=== PATIENT | female | born 1990 | race Caucasian/White ===

== ENCOUNTER 2017-05-11 14:52 | Day surgery (SDC) | payer MEDICAID, SELFPAY ==
[2017-05-08 09:18] VITALS: BP 96/58; BMI 16.8
[2017-05-11] VITALS (8 sets, daily range): BP systolic 91–101; BP diastolic 54–68; PULSE 80–104; RESP 16–18; TEMP 36.3–36.9; O2SAT 97–100; BMI 16.3
[2017-05-11] MEDS: Doxycycline 100 MG CAPSULE PO (09:45)
[2017-05-11 15:31] LABS: Hematocrit 37.1 % (37-47); Hemoglobin 12.6 g/dl (12.0-15.0); Mean Corpuscular Hgb 29.3 pg (27.0-32.0); Mean Corpuscular Volume 86.3 fL (81-99); Mean Platelet Vol. 10.1 fl (6.2-12.0); Platelet Count 191 K/mm3 (150-450); RBC Distribution Width CV 12.4 % (11.6-14.6); White Blood Count 8.4 K/mm3 (4.4-11.0)
[2017-05-11 15:33] LABS: Scan Indicated on CBC? Y/N NO
--- NOTE | 2017-05-11 16:30 | POC_PTH ---
PATIENT: LASHON ROSAS [place] [facility] [id number] AGE/SX: 26/F ROOM: RE05/11/[address]: Dr. Rosalba Maneul MD : 1990 BED: DIS: 05/11/2017 SPEC #: [id number] RECD: 05/12/17 12:11 STATUS: JI JORJE #: [id number] JAVIER: 05/11/17 16:[address]: Rosalba Manuel DEPT: SURGICAL PATHOLOGY RECD BY: Esteban Lindsey ENTERED: 05/12/17 13:48 SP TYPE: PROD CONC OTHR DR: Dr. Andi Malave MD Tissues: Product of conception, NOS Procedures: Surgery Specimen Level IV HEADER OPERATION: Dilation and curettage, suction PRE-OP DIAGNOSIS: Missed TISSUE SUBMITTED: Products of conception MICROSCOPIC DIAGNOSIS Endometrium, curettage: Chorionic villi, decidualized stroma and trophoblastic cells consistent with products of conception. AM:soni 05/13/17 MICROSCOPIC DESCRIPTION Slides are reviewed. GROSS DESCRIPTION Received in fixative is one container labeled with the patient's name and designated products of conception. The specimen consists of multiple irregular fragments of pink-guillermo soft tissue that in aggregate measure 6 x 5 x 0.2 cm. parts are not grossly recognized. Salesperson Sheet Music portions are submitted in one cassette. / AM:soni 05/12/17 TC:5 CPT: 22455
--- NOTE | 2017-05-11 16:47 | HP.PCM_ITS ---
- Problem List (1) Missed Status: Acute Comment: s/p cytotec two doses, if incomplete recommend d and c , given some percocet for pain History and Physical Date of Admission: 05/11/17 Intake Vital Signs 3 05/08/17 Height 5 ft 2 in 05/08/17 Weight: 92 lb 05/08/17 Body Mass Index (BMI) 16.8 05/08/17 Blood Pressure 96/58 Intake Visit Reasons: Follow up Cnc Specialist Required: No Allergies latex Allergy (Verified 05/08/17 14:06) Hives morphine Allergy (Verified 05/08/17 14:06) Hives Penicillins Allergy (Verified 05/08/17 14:06) Hives Medications BusPIRone [Buspar] 5 mg PO DAILY 12/23/15 [History Confirmed 05/11/17] oxycodone-acetaminophen 5 mg-325 mg tablet 1 tab PO ONCE PRN #14 tab 05/05/17 [ Rx Confirmed 05/08/17] ProMETHAzine [Phenergan] 12.5 mg PO PRN PRN 05/08/17 [History Confirmed 05/08/17 ] Is last menstrual period known: No Post menopausal: No Patient : No : No PFSH Medical History Anxiety and depression (Acute) Family History Grandmother Cancer lung Breast cancer Heart disease Grandfather Heart disease Social History Smoking Status: Current every day smoker alcohol intake: never substance use type: does not use caffeine: Yes what type of physical activity do you participate in: walking seatbelt use: always do you feel safe at home: Yes additional social history: Anuj- Unemployed patient is unemployed HPI Follow up: Details: LASHON HOLLINGSWORTH is a 26 year old who presents for fu her miscarriage. she has taken two doses of cytotec and still has retained products. s he wants to proceed with a d and c. Pregancy History 2 2 Elective abortions Hx Para 1 Spontaneous abortions Hx # Term Pregnancies Ectopic pregnancies Hx # Pregnancies Multiple births # of living children Past Pregnancies Del. Date Name GA/Weeks Outcome Route Bth Weight Infant Gen Labor Lgth Anesthesia Del Locatn Provider FOB Unknown 2013 Anuj 36 live - full term Male [facility] ROS Const Constitutional: Denies poor appetite, headache(s), fever(s), increased appetite , weight gain, weight loss or fatigue Cardio Card: Denies chest pain Resp Resp: Denies dyspnea or cough GI GI: Reports as per HPI; denies vomiting, nausea, abdominal pain or constipation : Reports as per HPI; denies urinary urgency, vaginal discharge, urinary frequency, vaginal itching, vaginal odor, vaginal dryness, urinary incontinence, urinary hesitancy, difficulty urinating, painful urination or nipple discharge Skin Skin/Breast: Denies breast lump, breast pain, breast skin changes, nipple discharge or change in hair Exam Const General: cooperative, healthy appearing, comfortable, no acute distress, well developed Nutritional Appearance: average body habitus Orientation: alert HENME Head: normal to inspection, normocephalic Neck Neck: normal visual inspection, trachea midline Thyroid: thyroid normal Resp Effort & Inspection: normal respiratory effort GI Inspection: normal to inspection, non-distended Palpation: soft, no hepatosplenomegaly General: bladder normal to palpation External Female Exam: normal external appearance, normal appearance of the urethra Urethra: normal appearance of the urethra, normal palpation, no discharge Speculum Exam - Vagina: normal appearance of the vagina, normal vaginal discharge Speculum Exam - Cervix: normal appearance of the cervix, nontender Bimanual Exam- Vagina & Uterus: bladder normal to palpation, No cervical tenderness, normal bimanual exam, uterine size normal, uterine shape normal, uterine mobility normal, uterine consistency normal, normal cervical palpation, uterus non-tender Bimanual Exam- Adnexa, other: normal adnexae, adnexae mobile, no adnexal masses , pelvic support normal Pelvic Support: normal Skin General: no rashes or lesions noted Assessment & Plan Problems 1. Missed O02.1 s/p cytotec two doses, if incomplete recommend d and c, given some percocet for pain Plan plan d and c suction Coding Level of Care Code Off vis,est,level 4 Diagnoses Missed O02.1
--- NOTE | 2017-05-11 16:48 | OP.PCM_ITS ---
Problem List (1) Missed Status: Acute Comment: s/p cytotec two doses, if incomplete recommend d and c , given some percocet for pain Report of Operation Date of Procedure: 05/11/17 Pre-Operative Diagnosis: missed ab 6 weeks Post-Operative Diagnosis: same Surgery/Procedure Performed:: Suction D&C 6 weeks Description of Surgical Findings:: Six-week missed AB Type of Anesthesia:: Local MAC Specimen's removed: poc Estimated Blood Loss (mL): 25 cc Fluids Replaced: Crystalloid Description of Procedure: Patient was evaluated preoperatively and found to have a missed at 7-8 weeks of measuring only 5-6 weeks with no pole or yolk sac seen. Patient was counseled and offered medical management versus surgical and patient chose suction D&C after failing medical management with Cytotec after 1 week. Patient received IV anesthesia was prepped and draped in normal sterile fashion in the dorsal lithotomy position. Cervix was grasped with ring forceps and previously dilated to allow passage of a 7 mm suction curette. Uterus sounded 9 cm. Multiple passes were made with the suction curette to remove products of conception and then sharp curettage was formed to confirm all removal of products of conception. All instruments were removed from the vagina and patient was awoken and taken recovery in stable condition. Grafts/Implants Used: None - Complications None - Admit VTE Documentation VTE Present on Admission: No VTE Mechan Device Prophylaxis: SCD's
--- NOTE | 2017-05-11 16:48 | PCM.DC.D&C ---
Discharge Diet: No Restrictions Discharge Activity: Return to Normal Activity May resume sexual activity in: No Restrictions Call your doctor if you observe: Fever of 101 or Higher Allergies/Adverse Reactions: Allergies latex Allergy (Verified 05/08/17 14:06) Hives morphine Allergy (Verified 05/08/17 14:06) Hives Penicillins Allergy (Verified 05/08/17 14:06) Hives Medications to take at Discharge BusPIRone [Buspar] 5 mg PO DAILY 12/23/15 oxycodone-acetaminophen 5 mg-325 mg tablet 1 tab PO ONCE PRN #14 tab 05/05/17 ProMETHAzine [Phenergan] 12.5 mg PO PRN PRN 05/08/17 Primary Care Physician: Andi Malave MD [Primary Care Provider] - Please Follow Up With: Rosalba Manuel MD - [phone]
[2017-05-11] MEDS: MedroxyPROGESTERone 150 MG/ML Syringe IM (17:23)
== END 2017-05-11 18:14 | disposition home or self-care (01) ==
LOC: SDC 14:54 → AC 14:56
PROVIDERS: Anesthesiology; Family Provider Family Medicine; PCP Family Medicine; Visit Provider Obstetrics & Gynecology
PROC: (CPT 59812; principal; 2017-05-11 16:15)
DX: O02.89 Other abnormal products of conception (principal); F32.9 Major depressive disorder, single episode, unspecified; F41.9 Anxiety disorder, unspecified; F17.200 Nicotine dependence, unspecified, uncomplicated; Z79.899 Other long term (current) drug therapy
CPT/HCPCS: 59812; 85027; 86850; 86870; 86900; 88305; J7120; J2405

== ENCOUNTER → 2017-08-05 16:40 | Outpatient (CLI) | payer MEDICAID, SELFPAY ==
[2017-08-05 20:02] LABS: Chlamydia Trachomatis by PCR Negative (Negative); Neisserai gonorrhoeae by PCR Negative (Negative); Probe Check PASS; Sample Adequacy Control PASS; Specimen Processing Control PASS
== END ==
PROVIDERS: Visit Provider Nurse Practitioner Women's Health
DX: Z11.3 Encounter for screening for infections with a predominantly sexual mode of transmission (principal)
CPT/HCPCS: 87070; 87205; 87491; 87591

== ENCOUNTER 2018-06-07 18:52 | Emergency (ER) | payer BC, SELFPAY ==
[2018-06-02 10:52] VITALS: BMI 18.1
[2018-06-07 18:54] VITALS: BP 98/67; PULSE 110; RESP 16; TEMP 36.6; O2SAT 97; BMI 16.0
--- NOTE | 2018-06-07 19:05 | ED.VISSUMM ---
- ER Visit Summary Date of Service: 06/07/18 Chief Complaint: Influenza History of Present Illness: The patient is a 27 F presenting with influenza-like illness for 1 day. Her daughter and son were both just diagnosed with influenza A. She is certain that she has it. She denies vomiting, abdominal pain, neck pain, rash, or confusion. Physical Examination: Those are within normal limits. Not in distress. No meningeal signs. No rash. Normal neurologic exam. Is clear. Pulse ox normal. Test Results: Emergency Department Course and Treatment: She does not want to be tested. Given her exposure and symptoms, I do think it is reasonable to treat her with Tamiflu. She was given her first dose here. Treatment Plan: Disposition: Home stable Impression: Initial encounter influenza-like illness with exposure to influenza a This note was generated with [employer] dictation software. It may contain incorrect words, spelling, and punctuation that were not noted in review of the chart prior to signing ED Disposition - Plan for ED Patient: Instructions: ED Flu Prescriptions: proMETHazine tablet [Phenergan] 25 mg PO Q6H PRN PRN #10 tablet PRN Reason: Nausea Oseltamivir Phosphate [Tamiflu] 75 mg PO BID #10 capsule Referrals: Andi Malave MD [Primary Care Provider] -
--- NOTE | 2018-06-07 19:08 | ED.DCSUM_ITS ---
- ER Visit Summary Date of Service: 06/07/18 Chief Complaint: Influenza History of Present Illness: The patient is a 27 F presenting with influenza-like illness for 1 day. Her daughter and son were both just diagnosed with influenza A. She is certain that she has it. She denies vomiting, abdominal pain, neck pain, rash, or confusion. Physical Examination: Those are within normal limits. Not in distress. No meningeal signs. No rash. Normal neurologic exam. Is clear. Pulse ox normal. Test Results: Emergency Department Course and Treatment: She does not want to be tested. Given her exposure and symptoms, I do think it is reasonable to treat her with Tamiflu. She was given her first dose here. Treatment Plan: Disposition: Home stable Impression: Initial encounter influenza-like illness with exposure to influenza a This note was generated with [employer] dictation software. It may contain incorrect words, spelling, and punctuation that were not noted in review of the chart prior to signing ED Disposition - Plan for ED Patient: Instructions: ED Flu Prescriptions: proMETHazine tablet [Phenergan] 25 mg PO Q6H PRN PRN #10 tablet PRN Reason: Nausea Oseltamivir Phosphate [Tamiflu] 75 mg PO BID #10 capsule Referrals: Andi Malave MD [Primary Care Provider] -
[2018-06-07 19:24] VITALS: BP 116/70; PULSE 92; RESP 18; O2SAT 97
== END 2018-06-07 19:24 | disposition home or self-care (01) ==
LOC: ED 19:18
PROVIDERS: Emergency Provider Emergency Medicine; Family Provider Family Medicine; PCP Family Medicine
DX: Z20.828 Contact with and (suspected) exposure to other viral communicable diseases (principal); M79.10 Myalgia, unspecified site; R11.0 Nausea; R50.9 Fever, unspecified; Z72.0 Tobacco use
CPT/HCPCS: 99283

== ENCOUNTER 2018-07-20 14:04 | Emergency (ER) | payer BC, MEDICAID, SELFPAY ==
[2018-07-20 14:05] VITALS: BP 145/84; PULSE 115; RESP 16; TEMP 36.6; O2SAT 97; BMI 17.2
--- NOTE | 2018-07-20 14:07 | NURSING ---
NO OLD EKGS
[2018-07-20 15:52] VITALS: PULSE 100; RESP 14; O2SAT 97
--- NOTE | 2018-07-20 15:55 | EKG12_ITS ---
Test Reason : Blood Pressure : / mmHG Vent. Rate : 125 BPM Atrial Rate : 125 BPM P-R Int : 134 ms QRS Dur : 090 ms QT Int : 308 ms P-R-T Axes : 076 095 011 degrees QTc Int : 444 ms Sinus tachycardia Right atrial enlargement Borderline ECG Confirmed by JOSE YANG, AVA ([id number]), science editor DARCIE BAÑUELOS ([id number]) on 07/22/2018 9:16:24 AM Referred By: TIFFANY Confirmed By:AVA GARCIA MD
--- NOTE | 2018-07-20 16:00 | ED.DCSUM_ITS ---
- ER Visit Summary Date of Service: 07/20/18 Chief Complaint: Palpitations History of Present Illness: The patient is a 27 F who complains of a 2-week history of heart racing and beating fast. She was seen at her PCPs office. An EKG showed tachycardia. She is scheduled for an echocardiogram and Holter mo shantal. She states she occasionally feels lightheaded but has not had any syncope or near syncope. She did start Prozac approximate 1 month ago for anxiety. She is a smoker. She denies drug use. No recent change in diet or caffeine intake. Physical Examination: Blood pressure is 145/84, temperature 97.9, heart rate 115, respiratory rate 16, pulse ox 97% on room air. The time of my examination her heart rate is 106. Patient is sitting upright in bed no acute distress. She is alert and talkative. Head neck examination is unremarkable. Heart is slightly tachycardic and regular. Lungs sounds are clear. Abdomen is soft and nontender. Test Results: EKG is sinus tach at 125 with no sign of acute ischemia. CBC is normal. Chemistry studies significant only for potassium slightly low at 3.4. Troponin is negative. TSH is normal. test is negative. Emergency Department Course and Treatment: Patient was given IV fluids here. On repeat evaluation blood pressure is 106/74 with a heart rate of 85. Test results were discussed with the patient. She will be given a dose of potassium here and 2 additional days at home. She is to follow-up next week for her Holter monitor as scheduled. If she has continues to have symptoms she is to follow-up with the nurse practitioner at her primary care office. She is comfort with this plan. Treatment Plan: [] Disposition: Discharge Impression: 1. Palpitations 2. Mild hypokalemia This note was generated with [employer] dictation software. It may contain incorrect words, spelling, and punctuation that were not noted in review of the chart prior to signing ED Disposition - Plan for ED Patient: Disposition: Home or Assisted Living Instructions: ED Palpitations Prescriptions: Potassium Chloride [K-Dur] 40 meq PO DAILY #2 days Referrals: Andi Malave MD [NON-STAFF] - Keep Igor appointment
[2018-07-20 16:10] VITALS: BP 108/74; PULSE 85; RESP 16; O2SAT 97
[2018-07-20 16:22] LABS: Absolute Lymphocyte Count 1.45 X10^3/ul (0.83-4.51); Absolute Neutrophil Count 5.2 X10^3/uL (2.0-7.7); Basophil# 0.02 X10^3/uL; Basophil% 0.3 % (0-1); Eosinophil# 0.05 X10^3/uL; Eosinophils% 0.7 % (0-5); Hematocrit 40.6 % (37-47); Hemoglobin 13.9 g/dl (12.0-15.0); Lymphocyte # 1.45 X10^3/ul (4.0); Mean Corp Hgb Conc 34.2 g/gl (32-36); Mean Corpuscular Hgb 28.5 pg (27.0-32.0); Mean Corpuscular Volume 83.2 fL (81-99); Monocyte# 0.53 X10^3/uL; Monocyte% 7.3 % (0-10); Neutrophil % 71.6 % (47-70); Platelet Count 200 K/mm3 (150-450); RBC Distribution Width CV 12.2 % (11.6-14.6); RBC Distribution Width SD 36.7 fl (35.1-43.9); Red Blood Count 4.88 M/mm3 (4.2-5.4); White Blood Count 7.3 K/mm3 (4.4-11.0)
[2018-07-20 16:35] LABS: POSITIVE COUNT NO; POSITIVE DIFFERENTIAL NO
[2018-07-20 16:36] LABS: POSITIVE MORPHOLOGY NO
[2018-07-20 16:44] LABS: Internal QC Validated? YES +Cl - CLEAR BKGD; Pregnancy, Serum, hCG Quali. NEGATIVE Negative
[2018-07-20 16:45] LABS: Anion Gap 5 (5-15); BUN 6 mg/dL (7-18); BUN/Creat Ratio 8.4 RATIO (10-20); Calcium,Total 8.7 mg/dL (8.5-10.1); Chloride 109 mmol/L (98-107); Creatinine, Serum 0.72 mg/dL (0.55-1.02); EST Glomerular Filtration Rate 105 mL/min (>60); Est Glom Filt Rate - Afr Amer 127 mL/min (>60); Glucose 98 mg/dL (74-106); Potassium 3.4 mmol/L (3.5-5.1); Sodium Level 138 mmol/L (136-145)
[2018-07-20 17:24] VITALS: BP 107/71; PULSE 88; RESP 16; O2SAT 99
== END 2018-07-20 17:33 | disposition home or self-care (01) ==
PROVIDERS: Emergency Provider Emergency Medicine
DX: R00.2 Palpitations (principal); E87.6 Hypokalemia; K21.9 Gastro-esophageal reflux disease without esophagitis; Z72.0 Tobacco use; F41.9 Anxiety disorder, unspecified
CPT/HCPCS: 80048; 84443; 84484; 84703; 85025; 93005; 96360; 99285; J7030; J7040; A4216

== ENCOUNTER 2018-07-23 13:02 | Emergency (ER) | payer BC, MEDICAID, SELFPAY ==
[2018-07-23 13:03] VITALS: BP 142/113; PULSE 156; RESP 28; TEMP 36.3; O2SAT 98; BMI 18.3
--- NOTE | 2018-07-23 14:21 | ED.VISSUMM ---
- ER Visit Summary Date of Service: 07/23/18 Chief Complaint: Heart racing, concern for serotonin syndrome History of Present Illness: The patient is a 27 F he was concerned that she has serotonin syndrome. Over the past 1 month ever since she started Prozac she states that she has had heart racing, headaches, shaking, soft stools. She was seen 3 days ago and had laboratory studies which were unremarkable except for a potassium of 3.4. Her TSH was normal at that time. She states that she read on the Internet about serotonin syndrome and she is concerned about this. She does have a history of anxiety. She denies any muscle rigidity. She denies any significant diarrhea. No vomiting. She was given supplemental potassium to take at her last ER visit. Physical Examination: Vital signs are reviewed. HEENT exam normal. Her pupils are not dilated. Her heart is tachycardic with regular rhythm without murmurs. Lungs are clear. Abdomen is soft and nontender. Back exam normal. Her extremities are normal without any muscle rigidity. She is neurologically intact and normal. There is no effusion or encephalopathy. She is able to answer all questions appropriately. Test Results: BMP normal Emergency Department Course and Treatment: The patient's basic metabolic panel was normal. Potassium normal. She is normal sinus on the monitor. I do not feel that this is serotonin syndrome as she has no confusion, muscle rigidity or dilated pupils. This could definitely be due to the Prozac but I do not feel it is anything serious currently. She will need to speak with her physician about possibly weaning off of Prozac and switching to another anti-anxiety/antidepressant. At this point she will monitor her symptoms and will follow up with her PCP Treatment Plan: [] Disposition: Discharge Impression: Palpitations, anxiety This note was generated with [employer] software. It may contain incorrect words, spelling, and punctuation that were not noted in review of the chart prior to signing ED Disposition - Plan for ED Patient: Referrals: Cathleen Dumont NP-C [Primary Care Provider] -
[2018-07-23] MEDS: 0.9% Normal Saline 1,000 ML 999 ML IV (14:24)
--- NOTE | 2018-07-23 14:26 | ED.DCSUM_ITS ---
- ER Visit Summary Date of Service: 07/23/18 Chief Complaint: Heart racing, concern for serotonin syndrome History of Present Illness: The patient is a 27 F he was concerned that she has serotonin syndrome. Over the past 1 month ever since she started Prozac she states that she has had heart racing, headaches, shaking, soft stools. She was seen 3 days ago and had laboratory studies which were unremarkable except for a potassium of 3.4. Her TSH was normal at that time. She states that she read on the Internet about serotonin syndrome and she is concerned about this. She does have a history of anxiety. She denies any muscle rigidity. She denies any significant diarrhea. No vomiting. She was given supplemental potassium to take at her last ER visit. Physical Examination: Vital signs are reviewed. HEENT exam normal. Her pupils are not dilated. Her heart is tachycardic with regular rhythm without murmurs. Lungs are clear. Abdomen is soft and nontender. Back exam normal. Her extremities are normal without any muscle rigidity. She is neurologically intact and normal. There is no effusion or encephalopathy. She is able to answer all questions appropriately. Test Results: BMP normal Emergency Department Course and Treatment: The patient's basic metabolic panel was normal. Potassium normal. She is normal sinus on the monitor. I do not feel that this is serotonin syndrome as she has no confusion, muscle rigidity or dilated pupils. This could definitely be due to the Prozac but I do not feel it is anything serious currently. She will need to speak with her physician about possibly weaning off of Prozac and switching to another anti- anxiety/antidepressant. At this point she will monitor her symptoms and will follow up with her PCP Treatment Plan: [] Disposition: Discharge Impression: Palpitations, anxiety This note was generated with [employer] software. It may contain incorrect words, spelling, and punctuation that were not noted in review of the chart prior to signing ED Disposition - Plan for ED Patient: Referrals: Cathleen Dumont NP-C [Primary Care Provider] -
[2018-07-23 14:31] LABS: Anion Gap 5 (5-15); BUN 7 mg/dL (7-18); BUN/Creat Ratio 9.1 RATIO (10-20); Calcium,Total 8.8 mg/dL (8.5-10.1); Chloride 107 mmol/L (98-107); Creatinine, Serum 0.77 mg/dL (0.55-1.02); EST Glomerular Filtration Rate 96 mL/min (>60); Est Glom Filt Rate - Afr Amer 117 mL/min (>60); Estimated Creatinine Clearance 80.22 ml/min; Glucose 97 mg/dL (74-106); Potassium 3.6 mmol/L (3.5-5.1); Sodium Level 138 mmol/L (136-145)
--- NOTE | 2018-07-23 15:01 | ED.DEP ---
ED Disposition - Plan for ED Patient: Disposition: Home or Assisted Living Instructions: ED Palpitations Referrals: Cathleen Dumont, DANIELA-C [Primary Care Provider] -
[2018-07-23 15:25] VITALS: BP 141/99; PULSE 99; RESP 14; O2SAT 99
== END 2018-07-23 15:26 | disposition home or self-care (01) ==
PROVIDERS: Emergency Provider Emergency Medicine; Family Provider Registered Nurse; PCP Registered Nurse
DX: R00.2 Palpitations (principal); F41.9 Anxiety disorder, unspecified; Z72.0 Tobacco use
CPT/HCPCS: 80048; 96360; 99283; J7030; A4216

== ENCOUNTER → 2018-08-20 17:51 | Outpatient (CLI) | payer BC, MEDICAID, SELFPAY ==
[2018-08-20 13:44] VITALS: BMI 17.4
== END ==
PROVIDERS: Family Provider Registered Nurse; PCP Registered Nurse; Referring Provider Obstetrics & Gynecology; Visit Provider Obstetrics & Gynecology
DX: R30.0 Dysuria (principal)
CPT/HCPCS: 87086

== ENCOUNTER → 2019-06-17 | Outpatient (CLI) | payer MEDICAID, SELFPAY ==
[2019-06-17 10:17] VITALS: BMI 17.5
== END | disposition home or self-care (01) ==
LOC: LABSPEC 11:57
PROVIDERS: PCP Registered Nurse; Referring Provider Nurse Practitioner Women's Health; Visit Provider Nurse Practitioner Women's Health
DX: R30.0 Dysuria (principal)
CPT/HCPCS: 87086

== ENCOUNTER 2019-08-16 12:46 | Emergency (ER) | payer MEDICAID, SELFPAY ==
[2019-06-17 10:17] VITALS: BMI 17.5
[2019-08-16 12:47] VITALS: BP 128/79; PULSE 134; RESP 16; TEMP 36.6; O2SAT 98; BMI 18.3
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
--- NOTE | 2019-08-16 13:54 | CM.ED ---
Social Work Telephone call to [facility] with patient in room. [facility] intake speaking with patient. [facility] able [facility] with 6 year old son. Patient has own transportation to [facility] and provided with address [facility] brochure. Patient stating to have no further questions at this time and to feel safe with discharge plan. Active support and listening provided. Updated Dr. Boyer and nursing staff. PLAN: Discharge to [facility]. Scarlett GARCIA, VARGHESE
== END 2019-08-16 13:55 | disposition home or self-care (01) ==
PROVIDERS: Emergency Provider Emergency Medicine; PCP Registered Nurse
DX: S20.211A Contusion of right front wall of thorax, initial encounter (principal); F17.200 Nicotine dependence, unspecified, uncomplicated; Y04.2XXA Assault by strike against or bumped into by another person, initial encounter; Y93.89 Activity, other specified; Y92.009 Unspecified place in unspecified non-institutional (private) residence as the place of occurrence of the external cause; Y99.8 Other external cause status
CPT/HCPCS: 71101; 99282

== ENCOUNTER → 2019-09-16 | Outpatient (CLI) | payer MEDICAID, SELFPAY ==
[2019-09-16 14:27] VITALS: BMI 18.3
== END | disposition home or self-care (01) ==
LOC: LABSPEC 16:17
PROVIDERS: PCP Registered Nurse; Referring Provider Obstetrics & Gynecology; Visit Provider Obstetrics & Gynecology
DX: R35.0 Frequency of micturition (principal)
CPT/HCPCS: 87086

== ENCOUNTER → 2020-04-02 | Outpatient (CLI) | payer MEDICAID, SELFPAY ==
[2020-04-02 15:10] VITALS: BMI 18.6
[2020-04-05 12:35] LABS: HPV Reflexed? NOT INDICATED
== END | disposition home or self-care (01) ==
LOC: LABSPEC 16:42
PROVIDERS: PCP Registered Nurse; Visit Provider Nurse Practitioner Women's Health
DX: Z12.4 Encounter for screening for malignant neoplasm of cervix (principal)
CPT/HCPCS: 88175; G0145

== ENCOUNTER 2021-03-25 16:28 | Emergency (ER) | payer MEDICAID, SELFPAY ==
[2021-03-25 16:28] VITALS: BP 121/86; PULSE 137; RESP 16; TEMP 35.8; BMI 19.0
[2021-03-25 16:58] VITALS: O2SAT 94
--- NOTE | 2021-03-25 17:10 | EKG12_ITS ---
Test Reason : CHEST HEAVINESS/PALP Blood Pressure : / mmHG Vent. Rate : 113 BPM Atrial Rate : 113 BPM P-R Int : 140 ms QRS Dur : 090 ms QT Int : 322 ms P-R-T Axes : 078 092 035 degrees QTc Int : 441 ms Sinus tachycardia Otherwise normal ECG Confirmed by RADHA YANG, SANJANA ([id number]), copy editor HUSSAIN HORVATH ([id number]) on 03/27/2021 9:56:03 AM Referred By: AMANDA Confirmed By:SANJANA GARCIA MD
--- NOTE | 2021-03-25 17:11 | EDS_ITS ---
HPI History of Present Illness Chief Complaint: Shortness of Breath Informant: patient Onset/Context/Timing Onset: Days (4 days) Context: Gradual Onset Current Severity: Mild Maximum Severity: Moderate Narrative Narrative: Patient presents secondary to shortness of breath and cough. Approximately 10 days ago she brought her stepdaughter in for evaluation of URI symptoms. She tested negative for Covid. 1 week later patient states she started developing similar symptoms with cough and congestion. No fever has been noted. She was exposed to people on Thursday, 2 days ago, that tested positive for Covid. Patient states she did home test for Covid on her and children today and they were all negative. She has had intermittent, brief chest pain that resolves after just a second or so. [facility] Medical History (Updated 03/25/21 @ 18:[address] Kellie Perez MD) Anxiety and depression Gastritis Home Medications buspirone 5 mg tablet 5 mg PO TID 04/24/20 [History Last Taken Unknown] medroxyprogesterone 150 mg/mL intramuscular syringe 150 mg IM [id number] #1 ml 01/17/21 [Rx Last Taken Unknown] Allergy/AdvReac Type Severity Reaction Status Date / Time latex Allergy Hives Verified 03/25/21 16:32 morphine Allergy Hives Verified 03/25/21 16:32 Penicillins Allergy Hives Verified 03/25/21 16:32 Family History Grandmother Cancer lung Breast cancer Heart disease Grandfather Heart disease Surgical History S/P dilation and curettage Social History Smoking Status: Current every day smoker tobacco type: cigarettes alcohol intake: never substance use type: does not use caffeine: No what type of physical activity do you participate in: walking seatbelt use: sometimes do you feel safe at home: Yes additional social history: Anuj- Unemployed patient is unemployed ROS ROS ED Constitutional Constitutional ED: Reports chills; Denies fever(s) Eyes Eyes: Denies change in vision ENT ENT ED: Reports other Details: Congestion ; Denies sore throat Cardiovascular Cardiovascular: Reports chest pain Respiratory/Chest Respiratory/Chest: Reports cough, dyspnea and sputum Gastrointestinal Gastrointestinal: Denies abdominal pain, diarrhea, nausea or vomiting Genitourinary Genitourinary ED: Denies dysuria Musculoskeletal Musculoskeletal: Reports myalgias; Denies back pain Integumentary Denies rash Neurologic Neurologic: Denies headache(s) or weakness Allergic/Immunologic Allergic/Immunologic ED: Denies urticaria EXAM Physical Exam Const Vital Signs: 03/25/21 16:28 03/25/21 16:58 Temperature 96.5 F L Temperature Source Temporal Pulse Rate 137 H Respiratory Rate 16 Respiratory Effort Normal Non-Labored Respiratory Depth Normal Respiratory Pattern Normal Blood Pressure 121/86 H Blood Pressure Mean 97 Oxygen Delivery Method Room Air Positive well nourished and well developed General Appearance ED: well developed HEENT Reports moist mucous membranes Eyes PERRL and EOMs intact bilaterally Neck supple Chest Wall inspection of chest normal and palpation of chest normal Resp normal respiratory effort and clear to auscultation bilaterally Cardio Rate: tachycardic GI non-tender Palpation: soft Extremity normal to inspection Psych mental status grossly normal Skin no rashes or lesions noted MDM MDM MDM Narrative Medical decision making narrative: Lab work, chest x-ray, EKG, Covid test obtained. Lab Data Attestation: I reviewed the patient's lab results. Labs: Laboratory Results - last 24 hr 03/25/21 03/25/21 03/25/21 17:30 17:30 17:30 WBC 3.8 L RBC 4.81 Hgb 14.2 Hct 41.4 MCV 86.1 MCH 29.5 MCHC 34.3 RDW Std Deviation 38.1 RDW Coeff of Rasta 11.9 Plt Count 175 MPV 10.9 Immature Gran % (Auto) 0.300 Neut % (Auto) 54.2 Lymph % (Auto) 32.0 Boyd % (Auto) 12.7 H Eos % (Auto) 0.3 Baso % (Auto) 0.5 Absolute Neuts (auto) 2.1 Absolute Lymphs (auto) 1.21 Nucleated RBC % 0 Sodium 142 Potassium 3.7 Chloride 107 Carbon Dioxide 27.0 Anion Gap 8 BUN 6 L Creatinine 0.80 Estim Creat Clear Calc 77.97 Est GFR (MDRD) Af Amer 110 Est GFR (MDRD) Non-Af 91 BUN/Creatinine Ratio 7.5 L Glucose 87 Calcium 9.0 Serum , Qual NEGATIVE Rapid Covid: Positive Radiography Chest X-Ray - ED: 1 View, Read by ED Physician, Normal, Heart, Lungs and Mediastinum EKG Initial EKG: Attestation: I personally reviewed and interpreted this EKG as follows: Interpretation: Sinus Tachycardia (Sinus tach at 113 with no acute ischemia.) Treatment and Re-Evaluation Comments:: On repeat evaluation patient resting comfortably. Lab work unremarkable. Rapid Covid test is positive. Chest x-ray is clear with no infiltrate per my interpretation. Supportive care as discussed. I did recommend patient get a home pulse oximeter to monitor her oxygen levels. Return instructions provided. Discharge Plan Triage Chief Complaint: Shortness of Breath ED Provider: Kellie Perez Dx/Rx/DC Orders Clinical Impression: COVID-19 Instructions: Coronavirus Disease 2019 (COVID-19): Overview, Coronavirus Disease 2019 (COVID-19): Caring for Yourself or Others Prescriptions: No Action buspirone 5 mg tablet 5 mg PO TID RF: 0 medroxyprogesterone [Depo-Provera] 150 mg/mL syringe 150 mg IM [id number] Qty: 1 RF: 0 Primary Care Provider: Cathleen Dumont NP Referrals: Cathleen Dumont NP, [facility] [Primary Care Provider] - 1-2 Weeks Disposition Disposition: Home, Self Care
[2021-03-25] MEDS: Ibuprofen 200 MG Tablet 400 MG PO (17:21)
--- NOTE | 2021-03-25 17:40 | RAD_ITS ---
STUDY: X-RAY CHEST REASON FOR EXAM: Female, 30 years old. cough TECHNIQUE: AP portable COMPARISON: None. FINDINGS: The lungs are clear and expanded. There is no demonstrated pleural abnormality. Normal size heart. Normal mediastinum and esthela. Normal visualized pulmonary arteries. Normal visualized aortic arch and descending thoracic aorta. Normal visualized thoracic spine. Normal visualized ribs, clavicles, and shoulders. There is no demonstrated abnormality of the visualized soft tissue structures of the upper abdomen. RAD/Chest 1 View (Portable) IMPRESSION: Normal x-ray examination of the chest. Electronically Signed: Andi Qiu MD at 18:48 EST , Service support ,
[2021-03-25 17:45] LABS: Internal QC Validated? YES +Cl - CLEAR BKGD; Pregnancy, Serum, hCG Quali. NEGATIVE Negative
[2021-03-25 17:51] LABS: Anion Gap 8 (5-15); BUN 6 mg/dL (7-18); BUN/Creat Ratio 7.5 RATIO (10-20); Chloride 107 mmol/L (98-107); EST Glomerular Filtration Rate 91 mL/min (>60); Est Glom Filt Rate - Afr Amer 110 mL/min (>60); Estimated Creatinine Clearance 77.97 ml/min; Glucose 87 mg/dL (74-106); Potassium 3.7 mmol/L (3.5-5.1); Sodium Level 142 mmol/L (136-145)
[2021-03-25 18:12] LABS: Absolute Lymphocyte Count 1.21 X10^3/uL (0.83-4.51); Absolute Neutrophil Count 2.1 X10^3/uL (2.0-7.7); Basophil# 0.02 X10^3/uL; Basophil% 0.5 % (0-1); Eosinophil# 0.01 X10^3/uL; Eosinophils% 0.3 % (0-5); Hematocrit 41.4 % (37-47); Hemoglobin 14.2 g/dL (12.0-15.0); Lymphocyte # 1.21 X10^3/ul (0.83-4.51); Mean Corp Hgb Conc 34.3 g/dL (32-36); Mean Corpuscular Hgb 29.5 pg (27.0-32.0); Mean Corpuscular Volume 86.1 fL (81-99); Mean Platelet Vol. 10.9 fl (6.2-12.0); Monocyte# 0.48 X10^3/uL; Monocyte% 12.7 % (0-10); NRBC Flagged by Analyzer 0 % (0-5); Neutrophil # 2.05 X10^3/uL (2.7-7.7); Neutrophil % 54.2 % (47-70); Platelet Count 175 K/mm3 (150-450); RBC Distribution Width CV 11.9 % (11.6-14.6); RBC Distribution Width SD 38.1 fl (35.1-43.9); Red Blood Count 4.81 M/mm3 (4.2-5.4); White Blood Count 3.8 K/mm3 (4.4-11.0)
[2021-03-25 18:56] VITALS: BP 102/64; PULSE 117; RESP 20; O2SAT 99
== END 2021-03-25 18:57 | disposition home or self-care (01) ==
PROVIDERS: Emergency Provider Emergency Medicine; PCP Registered Nurse
DX: U07.1 COVID-19 (principal); F17.210 Nicotine dependence, cigarettes, uncomplicated; F41.9 Anxiety disorder, unspecified; F32.A Depression, unspecified; Z56.0 Unemployment, unspecified; Z79.3 Long term (current) use of hormonal contraceptives
CPT/HCPCS: 71045; 80048; 84703; 85025; 87426; 93005; 99283; A4216

== ENCOUNTER 2021-05-02 17:56 | Emergency (ER) | payer MEDICAID, SELFPAY ==
[2021-05-02 17:58] VITALS: BP 142/76; PULSE 126; RESP 18; TEMP 36; O2SAT 100; BMI 18.5
[2021-05-02 18:24] VITALS: O2SAT 97
--- NOTE | 2021-05-02 18:53 | EKG12_ITS ---
Test Reason : SOB Blood Pressure : / mmHG Vent. Rate : 089 BPM Atrial Rate : 089 BPM P-R Int : 132 ms QRS Dur : 088 ms QT Int : 346 ms P-R-T Axes : 057 087 055 degrees QTc Int : 420 ms Normal sinus rhythm Normal ECG Confirmed by JOSE YANG, AVA ([id number]), manager editorial HUSSAIN HORVATH ([id number]) on 05/06/2021 10:54:03 AM Referred By: NIRMALA Confirmed By:AVA GARCIA MD
--- NOTE | 2021-05-02 18:53 | CT_ITS ---
EXAM: CT ANGIOGRAPHY CHEST WITHOUT AND WITH INTRAVENOUS CONTRAST CLINICAL INDICATION: chest pain TECHNIQUE: Helically acquired angiography images were obtained of the chest without and with intravenous contrast. This CT exam was performed using one or more of the following dose reduction techniques: automated exposure control, adjustment of the mA and/or kV according to patient size, and/or use of iterative reconstruction technique. This report was created using [employer] report generation technology. MIP reconstructed images were created and reviewed. CONTRAST: IV 75mL [id number] COMPARISON: None. FINDINGS: PULMONARY ARTERIES: No demonstrated pulmonary embolism or arterial dissection. AORTA: Unremarkable. Normal in caliber. No evidence of dissection. GREAT VESSELS OF AORTIC ARCH: Unremarkable. Normal in caliber. No evidence of dissection. LUNGS AND PLEURAL SPACES: Unremarkable. No mass. No consolidation or edema. No pleural effusion or thickening. No pneumothorax. HEART: Unremarkable. Heart size is normal. No pericardial effusion. No signs of right heart strain, ratio of right ventricle to left ventricle measures less than 1. MEDIASTINUM: Unremarkable. No mediastinal or hilar adenopathy. Esophagus is unremarkable. No hiatal hernia. THYROID: Unremarkable. No thyroid lesions. BONES/JOINTS: Unremarkable. No suspicious lytic or blastic abnormality. CT/CTA Chest W/WO Contrast IMPRESSION: No demonstrated pulmonary embolism or arterial dissection. Electronically Signed: Ajay Blount MD at 20:14 EST Reading Location ID and State: [facility] / [place] , Service support ,
--- NOTE | 2021-05-02 18:58 | EDS_ITS ---
HPI History of Present Illness Chief Complaint: Shortness of Breath Narrative Narrative: 30-year-old female with history of COVID-19 infection and was diagnosed on the [place] she had symptoms starting about 3 days prior to that. She states that she started to recover and has noticed over the last few days she is short of breath and having sharp pleuritic chest pain and retrosternal area. Patient does get Depo-Provera shots as well. She has no history of DVT/PE. She states that her is currently having Covid symptoms at home that she is concerned she might of redeveloped COVID-19. She does not have any fevers or chills. She denies body aches. Her biggest concern is that she feels dyspneic and having chest pain. PFSH PFSH Medical History Anxiety and depression Gastritis Home Medications medroxyprogesterone 150 mg/mL intramuscular syringe 150 mg IM [id number] #1 ml 01/17/21 [Rx Last Taken Unknown] diphenhydramine HCl 25 mg capsule 25 mg PO QHS 04/12/21 [History Last Taken Unknown] Allergy/AdvReac Type Severity Reaction Status Date / Time latex Allergy Hives Verified 05/02/21 18:00 morphine Allergy Hives Verified 05/02/21 18:00 Penicillins Allergy Hives Verified 05/02/21 18:00 Family History Grandmother Cancer lung Breast cancer Heart disease Grandfather Heart disease Surgical History S/P dilation and curettage Social History Smoking Status: Current every day smoker tobacco type: cigarettes alcohol intake: never substance use type: does not use caffeine: No what type of physical activity do you participate in: walking seatbelt use: sometimes do you feel safe at home: Yes additional social history: Anuj- Unemployed patient is unemployed ROS ROS ED Constitutional Constitutional ED: Denies chills or fever(s) Eyes Eyes: Denies blurry vision or diplopia ENT ENT ED: Denies rhinorrhea or sore throat Cardiovascular Cardiovascular: Reports chest pain, palpitations and racing heartbeat Respiratory/Chest Respiratory/Chest: Reports dyspnea; Denies cough Gastrointestinal Gastrointestinal: Denies abdominal pain, nausea or vomiting Genitourinary Genitourinary ED: Denies dysuria or hematuria Musculoskeletal Musculoskeletal: Denies arthralgias or myalgias Integumentary Denies rash Neurologic Neurologic: Denies headache(s) or paresthesias Psychiatric Psychiatric: Reports anxiety; Denies depression EXAM Physical Exam Const Vital Signs: 05/02/21 17:58 05/02/21 18:24 05/02/21 19:15 Temperature 96.8 F L Temperature Source Temporal Pulse Rate 126 H Respiratory Rate 18 Respiratory Effort Normal Non-Labored Blood Pressure 142/76 H Blood Pressure Mean 98 Pulse Ox 100 Oxygen Delivery Method Room Air Room Air Room Air Positive well nourished General Appearance ED: NAD; Negative for pallor HEENT Reports moist mucous membranes atraumatic Eyes PERRL and EOMs intact bilaterally Neck no lymphadenopathy and supple Resp normal respiratory effort and clear to auscultation bilaterally Cardio regular rhythm Rate: tachycardic Extremity normal to inspection General Extremety ED: Negative for edema or tenderness General Extremity: Negative for edema Neuro oriented x3, CN's II-XII intact bilaterally and no sensory deficits noted Sensorium / Orientation: alert Motor Exam: strength 5/5 throughout Psych mental status grossly normal Thought Process: normal thought process Skin General Skin Exam: Negative for jaundice or pallor MDM MDM MDM Narrative Medical decision making narrative: Patient presenting with sharp pleuritic chest pain after having COVID-19 infection and she is also on Depo-Provera. EKG on my interpretation shows a normal sinus rhythm ventricular rate of 89 bpm without sign of ischemic change or dysrhythmia. Chest x-ray my interpretation shows no acute cardiopulmonary process and the radiologist does agree. CBC and BMP are unremarkable. High-sensitivity troponin is 3. I have very low suspicion for ACS as she has no risk factors for this I do not believe she is a delta troponin because she has been having his pains for days. CT of the chest is performed due to history of Depo-Provera and COVID-[address] of the chest was negative for any acute pulmonary process including pulmonary emboli or arterial dissection. Patient counseled on findings and since she has ultimately negative work-up I will discharge her home and she can follow-up with her PCP to ensure resolution. She is amenable to this plan. She discharged stable condition. Impression: 1. Chest pain noncardiac Lab Data Labs: Laboratory Results - last 24 hr 05/02/21 05/02/21 19:10 19:10 WBC 7.6 RBC 4.81 Hgb 14.2 Hct 42.3 MCV 87.9 MCH 29.5 MCHC 33.6 RDW Std Deviation 39.5 RDW Coeff of Rasta 12.2 Plt Count 258 MPV 10.4 Immature Gran % (Auto) 0.300 Neut % (Auto) 49.5 Lymph % (Auto) 34.3 Calhoun % (Auto) 10.6 H Eos % (Auto) 4.6 Baso % (Auto) 0.7 Absolute Neuts (auto) 3.8 Absolute Lymphs (auto) 2.62 Nucleated RBC % 0 Sodium 139 Potassium 3.7 Chloride 108 H Carbon Dioxide 26.0 Anion Gap 5 BUN 8 Creatinine 0.81 Estim Creat Clear Calc 75.09 Est GFR (MDRD) Af Amer 108 Est GFR (MDRD) Non-Af 90 BUN/Creatinine Ratio 9.9 L Glucose 98 Calcium 8.8 Troponin I High Sens 3 Radiography Diagnostic Testing: Clinical Impression(s) from Imaging Studies Chest CTA 05/02/21 18:53 IMPRESSION: No demonstrated pulmonary embolism or arterial dissection. Electronically Signed: Ajay Blount MD at 20:14 EST , Chest X-Ray 05/02/21 19:12 IMPRESSION: There are no acute findings. Electronically Signed: Ajay Blount MD at 19:30 EST , Discharge Plan Triage Chief Complaint: Shortness of Breath ED Provider: Arnoldo Elaine Dx/Rx/DC Orders Instructions: ED Chest Pain, Uncertain Cause Prescriptions: No Action diphenhydramine HCl [Benadryl] 25 mg capsule 25 mg PO QHS RF: 0 medroxyprogesterone [Depo-Provera] 150 mg/mL syringe 150 mg IM [id number] Qty: 1 RF: 0 Primary Care Provider: Cathleen Dumont NP Referrals: Cathleen Dumont NP, [facility]PA[facility] [Primary Care Provider] - Disposition Disposition: Home, Self Care Discharge Date/Time: 05/02/21 20:56
--- NOTE | 2021-05-02 19:12 | RAD_ITS ---
STUDY: X-RAY CHEST REASON FOR EXAM: Female, 30 years old. pt states cough, sob, congestion, pain with inspiration, hx of COVID in March chest pain TECHNIQUE: XR Chest 1 View COMPARISON: 03.25.21 FINDINGS: There is no demonstrated pleural abnormality. Normal size heart. Normal mediastinum and esthela. Normal visualized pulmonary arteries. Normal visualized aortic arch and descending thoracic aorta. Normal visualized thoracic spine. Normal visualized ribs, clavicles, and shoulders. There is no demonstrated abnormality of the visualized soft tissue structures of the upper abdomen. RAD/Chest 1 View (Portable) IMPRESSION: There are no acute findings. Electronically Signed: Ajay Blount MD at 19:30 EST ,
[2021-05-02 19:19] LABS: Absolute Lymphocyte Count 2.62 X10^3/uL (0.83-4.51); Absolute Neutrophil Count 3.8 X10^3/uL (2.0-7.7); Basophil# 0.05 X10^3/uL; Basophil% 0.7 % (0-1); Eosinophil# 0.35 X10^3/uL; Eosinophils% 4.6 % (0-5); Hematocrit 42.3 % (37-47); Hemoglobin 14.2 g/dL (12.0-15.0); Lymphocyte # 2.62 X10^3/ul (0.83-4.51); Lymphocyte % 34.3 % (19-41); Mean Corp Hgb Conc 33.6 g/dL (32-36); Mean Corpuscular Hgb 29.5 pg (27.0-32.0); Mean Corpuscular Volume 87.9 fL (81-99); Mean Platelet Vol. 10.4 fl (6.2-12.0); Monocyte# 0.81 X10^3/uL; Monocyte% 10.6 % (0-10); NRBC Flagged by Analyzer 0 % (0-5); Neutrophil # 3.79 X10^3/uL (2.7-7.7); Neutrophil % 49.5 % (47-70); Platelet Count 258 K/mm3 (150-450); RBC Distribution Width CV 12.2 % (11.6-14.6); RBC Distribution Width SD 39.5 fl (35.1-43.9); Red Blood Count 4.81 M/mm3 (4.2-5.4); White Blood Count 7.6 K/mm3 (4.4-11.0)
[2021-05-02 19:34] LABS: Anion Gap 5 (5-15); BUN 8 mg/dL (7-18); BUN/Creat Ratio 9.9 RATIO (10-20); Calcium,Total 8.8 mg/dL (8.5-10.1); Chloride 108 mmol/L (98-107); Creatinine, Serum 0.81 mg/dL (0.55-1.02); EST Glomerular Filtration Rate 90 mL/min (>60); Est Glom Filt Rate - Afr Amer 108 mL/min (>60); Estimated Creatinine Clearance 75.09 ml/min; Glucose 98 mg/dL (74-106); Potassium 3.7 mmol/L (3.5-5.1); Sodium Level 139 mmol/L (136-145); Troponin-I HS 3 pg/mL (3.0-54.0)
[2021-05-02] MEDS: Ibuprofen 600 MG Tablet PO (20:55)
--- NOTE | 2021-05-03 13:35 | CASEMGMT ---
NEDA BANGURA ED follow-up: NEDA BANGURA placed call to patient's telephone number listed on demographics with no answer. Voicemail left with call back information requesting return call if any questions, concerns or needs. NEDA Gomes CM
== END 2021-05-02 20:56 | disposition home or self-care (01) ==
PROVIDERS: Emergency Provider Student in an Organized Health Care Education/Training Program; PCP Registered Nurse; Visit Provider Student in an Organized Health Care Education/Training Program
DX: R07.89 Other chest pain (principal); R06.02 Shortness of breath; F17.210 Nicotine dependence, cigarettes, uncomplicated; Z86.16 Personal history of COVID-19; Z79.899 Other long term (current) drug therapy
CPT/HCPCS: 71045; 71275; 80048; 84484; 85025; 93005; 99283; Q9967; A4216

== ENCOUNTER 2022-02-25 02:59 | Emergency (ER) | payer MEDICAID, SELFPAY ==
[2022-02-25 02:59] VITALS: BP 127/79; PULSE 96; RESP 14; TEMP 36.7; O2SAT 99; BMI 19.0
--- NOTE | 2022-02-25 03:15 | CT_ITS ---
INDICATION: Pain EXAMINATION: CT ABDOMEN AND PELVIS WITHOUT CONTRAST TECHNIQUE: Helically acquired images were obtained of the abdomen and pelvis without IV contrast. 2-D reconstructions reviewed. A radiation dose optimization technique was used for this scan. IV Contrast dosage and agent: None. Oral contrast: None. COMPARISON: None. FINDINGS: LOWER CHEST: No acute findings within the imaged lung bases. Heart size within normal limits. LIVER: Homogeneous. No discrete mass. GALLBLADDER AND BILIARY TREE: No calcified gallstones identified. No gallbladder wall edema demonstrated. No significant biliary ductal dilation. PANCREAS: No discrete mass or peripancreatic edema. SPLEEN: Normal size without discrete mass. ADRENAL GLANDS: Unremarkable. KIDNEYS AND URETERS: Mild left hydroureteronephrosis secondary to 2 mm ureterovesical junction stone. Small bilateral renal calyceal stones measuring no larger than 2 mm. No discrete mass. PERITONEUM: No peritoneal free air or significant free fluid. No other fluid collection. RETROPERITONEUM: No retroperitoneal mass or pathologic fluid collection. BOWEL: Cecum projects across midline within the lower pelvis. Normal appendix located at midline pelvis. No bowel obstruction or significant bowel thickening. Slightly prominent colonic fecal load. No focal inflammatory change. LYMPH NODES: No enlarged mesenteric or retroperitoneal lymph nodes. VESSELS: No acute findings. No abdominal aortic aneurysm. URINARY BLADDER: Empty urinary bladder with tiny 2 mm left UVJ stone. REPRODUCTIVE ORGANS: No pelvic masses. ABDOMINAL WALL: No acute findings or significant hernia defect. BONES: Intact with no suspicious osseous lesion. CT/Abdomen/Pelvis without Cont IMPRESSION: 1. Bilateral nephrolithiasis with mild left obstructive uropathy secondary to 2 mm UVJ stone. 2. Probable mild constipation. Electronically Signed: Akin Maciel MD at 4:21 EST ,
--- NOTE | 2022-02-25 03:16 | ED.VIS.FEGU ---
HPI HPI - Female History of Present Illness Chief Complaint: Complaint Informant: patient Narrative Narrative: Patient states that she started with symptoms about 30 hours ago. She will have pain some burning feeling in the vaginal area. It is kind of like a sharp pain burn. But she has no discharge. No odor. She does have some frequent urination. But she states the urine has no odor. It is a little bit darker than normal but she does not know if she is seeing blood. She states she gets pain that shoots from the vaginal area up across the left flank to her left back intermittently. It was a little bit better today then it came back bad again tonight. When the pain is bad she gets nausea but she has never vomited. She has no known exposures to STD. Again no discharge or vaginal bleeding. No fevers or chills. She has never had a kidney stone but she has sisters and father with them and they run frequently and many family members. She was seen today at urgent care. They evidently checked a urine that showed blood but no sign of infection but they treated her with Bactrim anyway for possible UTI. She has not yet been able to fill that. [facility] Medical History (Updated 02/25/22 @ 04:[address] Loy Guzman MD) Anxiety and depression Gastritis Home Medications diphenhydramine HCl 25 mg capsule (Benadryl) 25 mg PO QHS 04/12/21 [History Last Taken Unknown] medroxyprogesterone 150 mg/mL intramuscular syringe See Rx Instructions .Route .COMPLEX #1 mL 10/08/21 [Rx Last Taken Unknown] naproxen 500 mg tablet 500 mg PO BID #20 tabs 02/25/22 [Rx Last Taken Unknown] ondansetron 4 mg disintegrating tablet 4 mg PO Q8H PRN nausea and vomiting #10 tabs 02/25/22 [Rx Last Taken Unknown] promethazine 25 mg tablet 25 mg PO Q6H PRN nausea and vomiting #10 tabs 02/25/22 [Rx Last Taken Unknown] tamsulosin 0.4 mg capsule (Flomax) 0.4 mg PO DAILY #7 caps 02/25/22 [Rx Last Taken Unknown] Allergy/AdvReac Type Severity Reaction Status Date / Time latex Allergy Hives Verified 02/25/22 03:07 morphine Allergy Hives Verified 02/25/22 03:07 Penicillins Allergy Hives Verified 02/25/22 03:07 Family History Grandmother Cancer lung Breast cancer Heart disease Grandfather Heart disease Surgical History S/P dilation and curettage Social History Smoking Status: Current every day smoker tobacco type: cigarettes alcohol intake: never substance use type: does not use caffeine: No what type of physical activity do you participate in: walking seatbelt use: sometimes do you feel safe at home: Yes additional social history: Anuj- Unemployed patient is unemployed ROS ROS ED Constitutional Constitutional ED: Denies chills or fever(s) ENT ENT ED: Denies rhinorrhea or sore throat Cardiovascular Cardiovascular: Denies chest pain or palpitations Respiratory/Chest Respiratory/Chest: Denies cough or dyspnea Gastrointestinal Gastrointestinal: Reports abdominal pain and nausea; Denies constipation, diarrhea, melena or vomiting Genitourinary Genitourinary ED: Reports dysuria, urinary frequency and other Details: See history of present illness Musculoskeletal Musculoskeletal: Denies myalgias Integumentary Denies Abrasions or rash Neurologic Neurologic: Denies headache(s) Endocrine Endocrinology: Denies polydipsia or polyuria Hematologic/Lymphatic Hematologic/Lymphatic: Denies easy bleeding or easy bruising Allergic/Immunologic Allergic/Immunologic ED: Denies urticaria EXAM Physical Exam Const Vital Signs: 02/25/22 02:59 Temperature 98.1 F Temperature Source Temporal Pulse Rate 96 Respiratory Rate 14 Blood Pressure 127/79 H Blood Pressure Mean 95 Pulse Ox 99 Oxygen Delivery Method Room Air Positive well nourished and well developed General Appearance ED: well developed HEENT Reports moist mucous membranes Eyes General Eye ED: Negative for scleral icterus Resp normal respiratory effort and clear to auscultation bilaterally Cardio regular rate and regular rhythm GI normal to inspection, nondistended, normoactive bowel sounds and soft to palpation GI Narrative: Minimal suprapubic tenderness but no rebound or guarding. She does have some left CVA tenderness. Back/Spine General Back: CVA tenderness Psych mental status grossly normal Skin no rashes or lesions noted MDM MDM MDM Narrative Medical decision making narrative: CT does show stone consistent with a left-sided flank pain. This should pass based on its size. Patient's urine does show signs suspicious for UTI. But she has no fevers. No white count. Renal function is normal. There is mild hydro so I think she is still passing urine. We will get her home. I will start Bactrim here. She already has a prescription for Bactrim at home. I will also write meds for pain nausea and Flomax. If she develops worsening pain, vomiting or fever she should return. Lab Data Attestation: I reviewed the patient's lab results. Labs: Laboratory Results - last 24 hr 02/25/22 02/25/22 02/25/22 03:08 03:23 03:23 WBC 7.5 RBC 4.58 Hgb 13.1 Hct 40.1 MCV 87.6 MCH 28.6 MCHC 32.7 RDW Std Deviation 38.9 RDW Coeff of Rasta 12.1 Plt Count 231 MPV 9.9 Immature Gran % (Auto) 0.400 Neut % (Auto) 48.3 Lymph % (Auto) 37.7 Rice % (Auto) 9.5 Eos % (Auto) 3.4 Baso % (Auto) 0.7 Absolute Neuts (auto) 3.6 Absolute Lymphs (auto) 2.81 Nucleated RBC % 0 Sodium 141 Potassium 3.7 Chloride 109 H Carbon Dioxide 26.0 Anion Gap 6 BUN 9 Creatinine 0.77 Estim Creat Clear Calc 80.28 Est GFR (MDRD) Af Amer 114 Est GFR (MDRD) Non-Af 95 BUN/Creatinine Ratio 11.7 Glucose 114 H Calcium 9.1 Serum , Qual Urine Color Yellow Urine Clarity Sl. Cloudy Urine pH 7.0 Ur Specific [place]ilion 1.015 Urine Protein 30 H Urine Glucose (UA) Normal Urine Ketones Negative Urine Occult Blood 250 H Urine Nitrite Negative Urine Bilirubin Negative Urine Urobilinogen Normal Ur Leukocyte Esterase 500 H Urine RBC 25-50 SEEN Urine WBC >100 SEEN Ur Squamous Epith Cells 0-5 SEEN Urine Bacteria 2+ Urine Mucus RARE 02/25/22 03:23 WBC RBC Hgb Hct MCV MCH MCHC RDW Std Deviation RDW Coeff of Rasta Plt Count MPV Immature Gran % (Auto) Neut % (Auto) Lymph % (Auto) Rice % (Auto) Eos % (Auto) Baso % (Auto) Absolute Neuts (auto) Absolute Lymphs (auto) Nucleated RBC % Sodium Potassium Chloride Carbon Dioxide Anion Gap BUN Creatinine Estim Creat Clear Calc Est GFR (MDRD) Af Amer Est GFR (MDRD) Non-Af BUN/Creatinine Ratio Glucose Calcium Serum , Qual NEGATIVE Urine Color Urine Clarity Urine pH Ur Specific Verm[place] Urine Protein Urine Glucose (UA) Urine Ketones Urine Occult Blood Urine Nitrite Urine Bilirubin Urine Urobilinogen Ur Leukocyte Esterase Urine RBC Urine WBC Ur Squamous Epith Cells Urine Bacteria Urine Mucus Radiography Diagnostic Testing: Clinical Impression(s) from Imaging Studies Abdomen/Pelvis CT 02/25/22 03:15 IMPRESSION: 1. Bilateral nephrolithiasis with mild left obstructive uropathy secondary to 2 mm UVJ stone. 2. Probable mild constipation. Electronically Signed: Akin Maciel MD at 4:21 EST , CT shows left 2 mm UVJ stone. Discharge Plan Triage Chief Complaint: Complaint ED Provider: Loy Guzman Dx/Rx/DC Orders Clinical Impression: Calculus of left kidney, Urinary tract infection Instructions: Urinary Tract Infections in Women, ED Kidney Stone w/ Colic Prescriptions: New ondansetron 4 mg tablet,disintegrating 4 mg PO Q8H PRN (Reason: nausea and vomiting) Qty: 10 0RF naproxen 500 mg tablet 500 mg PO BID Qty: 20 0RF tamsulosin [Flomax] 0.4 mg capsule 0.4 mg PO DAILY Qty: 7 0RF promethazine 25 mg tablet 25 mg PO Q6H PRN (Reason: nausea and vomiting) Qty: 10 0RF No Action diphenhydramine HCl [Benadryl] 25 mg capsule 25 mg PO QHS medroxyprogesterone 150 mg/mL syringe See Rx Instructions .ROUTE .COMPLEX Qty: 1 0RF Dose Instruction: INJECT 1ML EVERY 3 MONTHS Rx Instructions: INJECT 1ML EVERY 3 MONTHS Primary Care Provider: Cathleen Dumont NP Referrals: Alondra Villeda MD [Med Staff - Active Staff] - As soon as possible Cathleen Dumont NP, [employer] [Primary Care Provider] - Activity Restrictions/Additional Instructions: If you are developing worsening pain, recurrent vomiting, fevers, or other concerns please return. Disposition Disposition: Home, Self Care
[2022-02-25] MEDS: Ketorolac 15 MG/ML Vial IV (03:29)
[2022-02-25] MEDS: Ondansetron 4 MG/2 ML Vial IV (03:30)
[2022-02-25 03:31] LABS: Absolute Lymphocyte Count 2.81 X10^3/uL (0.83-4.51); Absolute Neutrophil Count 3.6 X10^3/uL (2.0-7.7); Basophil# 0.05 X10^3/uL; Basophil% 0.7 % (0-1); Eosinophil# 0.25 X10^3/uL; Eosinophils% 3.4 % (0-5); Hematocrit 40.1 % (37-47); Hemoglobin 13.1 g/dL (12.0-15.0); Lymphocyte # 2.81 X10^3/ul (0.83-4.51); Lymphocyte % 37.7 % (19-41); Mean Corp Hgb Conc 32.7 g/dL (32-36); Mean Corpuscular Hgb 28.6 pg (27.0-32.0); Mean Corpuscular Volume 87.6 fL (81-99); Mean Platelet Vol. 9.9 fl (6.2-12.0); Monocyte# 0.71 X10^3/uL; Monocyte% 9.5 % (0-10); NRBC Flagged by Analyzer 0 % (0-5); Neutrophil % 48.3 % (47-70); Platelet Count 231 K/mm3 (150-450); RBC Distribution Width CV 12.1 % (11.6-14.6); RBC Distribution Width SD 38.9 fl (35.1-43.9); Red Blood Count 4.58 M/mm3 (4.2-5.4); White Blood Count 7.5 K/mm3 (4.4-11.0)
[2022-02-25 03:36] LABS: Color, Urine Yellow (Yellow); Glucose, Dipstick Normal (Normal); Ketone-Dipstick Negative (Negative); Leukocyte Esterase-Dipstick 500 /ul (Negative); Nitrite-Dipstick Negative (Negative); Occult Blood-Urine 250 /ul (Negative); Protein-Dipstick 30 mg/dl (Negative); Specific Gravity, Urine 1.015 (1.002-1.030); Urine Bilirubin Dipstick Negative (Negative); Urine Clarity Sl. Cloudy (Clear); Urine Urobilinogen Normal (Normal)
[2022-02-25 03:48] LABS: Bacteria 2+ /hpf (None Seen); Mucous, Urine RARE /hpf (<or=2+); Red Blood Cells-Urine 25-50 SEEN /hpf (0-5); Squamous Epithelial Cells - UA 0-5 SEEN /hpf (5-10); White Blood Cells >100 SEEN /hpf (0-5)
[2022-02-25 03:49] LABS: Internal QC Validated? YES +Cl - CLEAR BKGD; Pregnancy, Serum, hCG Quali. NEGATIVE Negative
[2022-02-25 04:35] LABS: Anion Gap 6 (5-15); BUN 9 mg/dL (7-18); BUN/Creat Ratio 11.7 RATIO (10-20); Calcium,Total 9.1 mg/dL (8.5-10.1); Chloride 109 mmol/L (98-107); Creatinine, Serum 0.77 mg/dL (0.55-1.02); EST Glomerular Filtration Rate 95 mL/min (>60); Est Glom Filt Rate - Afr Amer 114 mL/min (>60); Estimated Creatinine Clearance 80.28 ml/min; Glucose 114 mg/dL (74-106); Potassium 3.7 mmol/L (3.5-5.1); Sodium Level 141 mmol/L (136-145)
[2022-02-25] MEDS: Smz/Tmp Ds Tablet 1 TABLET PO (04:44)
[2022-02-25] MEDS: Naproxen 250 MG Tablet PO (04:51)
== END 2022-02-25 04:53 | disposition home or self-care (01) ==
PROVIDERS: Emergency Provider Emergency Medicine; PCP Registered Nurse; Visit Provider Emergency Medicine
DX: N39.0 Urinary tract infection, site not specified (principal); N20.2 Calculus of kidney with calculus of ureter; R11.0 Nausea; R35.0 Frequency of micturition; R30.0 Dysuria
CPT/HCPCS: 74176; 80048; 81001; 84703; 85025; 96374; 96375; 99284; J2405

== ENCOUNTER 2022-04-30 14:36 | Emergency (ER) | payer MEDICAID, SELFPAY ==
[2022-04-30 14:37] VITALS: BP 111/76; PULSE 115; RESP 16; TEMP 36.6; O2SAT 100; BMI 19.0
--- NOTE | 2022-04-30 15:54 | ED.RN ---
called for pt at 1535, RN had seen pt walk outside but never mentioned leaving. had EKG at 1444.
== END 2022-04-30 15:35 | disposition left against medical advice (07) ==
LOC: ED 15:56
PROVIDERS: PCP Registered Nurse
DX: Z53.21 Procedure and treatment not carried out due to patient leaving prior to being seen by health care provider (principal)
CPT/HCPCS: 93005

== ENCOUNTER 2022-05-01 17:32 | Emergency (ER) | payer MEDICAID, SELFPAY ==
[2022-05-01 17:32] VITALS: BP 141/91; PULSE 112; RESP 14; TEMP 35.8; O2SAT 100; BMI 18.3
--- NOTE | 2022-05-01 17:50 | EDS_ITS ---
HPI History of Present Illness Chief Complaint: Chest Pain Informant: patient Narrative Narrative: Intermittent pain mid chest last couple days. Symptoms worse when she twists and turns. She has been having mild cough and symptoms started. She smokes. Denies recent travel or surgery no history of PE or DVT. She is on Depo shot with her progesterone estrogen. History of similar in the past. Denies history of gastric ulcers or kidney injury. Has not taken any medications for this as she states she does not like to take meds. Prior Similar Symptoms: Yes [facility] Medical History (Updated 05/01/22 @ 19:[address] Brendan Mackay DO) Anxiety and depression Gastritis Home Medications diphenhydramine HCl 25 mg capsule (Benadryl) 25 mg PO QHS 04/12/21 [History Last Taken Unknown] medroxyprogesterone 150 mg/mL intramuscular syringe See Rx Instructions .Route .COMPLEX #1 mL 10/08/21 [Rx Last Taken Unknown] naproxen 500 mg tablet 500 mg PO BID #20 tabs 02/25/22 [Rx Last Taken Unknown] ondansetron 4 mg disintegrating tablet 4 mg PO Q8H PRN nausea and vomiting #10 tabs 02/25/22 [Rx Last Taken Unknown] promethazine 25 mg tablet 25 mg PO Q6H PRN nausea and vomiting #10 tabs 02/25/22 [Rx Last Taken Unknown] tamsulosin 0.4 mg capsule (Flomax) 0.4 mg PO DAILY #7 caps 02/25/22 [Rx Last Taken Unknown] Allergy/AdvReac Type Severity Reaction Status Date / Time latex Allergy Hives Verified 05/01/22 17:32 morphine Allergy Hives Verified 05/01/22 17:32 Penicillins Allergy Hives Verified 05/01/22 17:32 Family History Grandmother Cancer lung Breast cancer Heart disease Grandfather Heart disease Surgical History S/P dilation and curettage Social History Smoking Status: Current every day smoker tobacco type: cigarettes alcohol intake: never substance use type: does not use caffeine: No what type of physical activity do you participate in: walking seatbelt use: sometimes do you feel safe at home: Yes additional social history: Anuj- Unemployed patient is unemployed ROS ROS ED Constitutional Constitutional ED: Denies chills, fever(s) or sweats Eyes Eyes: Denies change in vision ENT ENT ED: Denies dysphagia or sore throat Cardiovascular Cardiovascular: Reports chest pain; Denies leg edema, palpitations or racing heartbeat Respiratory/Chest Respiratory/Chest: Reports cough; Denies dyspnea or dyspnea on exertion Gastrointestinal Gastrointestinal: Denies abdominal pain, diarrhea, nausea or vomiting Genitourinary Genitourinary ED: Denies dysuria, hematuria or urinary frequency Musculoskeletal Musculoskeletal: Denies back pain, extremity pain or neck pain Integumentary Denies rash or wounds Neurologic Neurologic: Denies headache(s), paresthesias or weakness EXAM Physical Exam Const Vital Signs: 05/01/22 17:32 Temperature 96.5 F L Temperature Source Temporal Pulse Rate 112 H Respiratory Rate 14 Blood Pressure 141/91 H Blood Pressure Mean 107 Pulse Ox 100 Oxygen Delivery Method Room Air Positive well nourished and well developed General Appearance ED: well developed and NAD HEENT Reports moist mucous membranes normocephalic and atraumatic Eyes PERRL, EOMs intact bilaterally and conjunctivae normal General Eye ED: Yes normal appearance of both eyes Neck no lymphadenopathy and supple General: Negative for tenderness Chest Wall Chest Narrative: Reproducible chest pain left lateral to the sternum. No rash. Chest: Negative for tenderness Resp normal respiratory effort and normal air movement Resp Narrative: Symmetric breath sounds. Effort and Inspection: symmetric chest movement; Negative for respiratory distress Cardio regular rate, regular rhythm and no murmurs Peripheral Pulses: pulses 2+ throughout GI normal to inspection, nondistended, normoactive bowel sounds and non-tender Palpation: Negative for guarding or rebound tenderness present Back/Spine no CVA tenderness and no thoracic nor lumbar tenderness Extremity normal to inspection General Extremety ED: Negative for edema or tenderness General Extremity: Negative for edema Neuro oriented x3 and no sensory deficits noted Sensorium / Orientation: awake and alert Skin no rashes or lesions noted and no wounds MDM MDM MDM Narrative Medical decision making narrative: Patient presented with chest pain is reproducible. Differential all muscle skeletal costochondritis versus atypical chest pains. She had mild cough therefore possible pneumonia. She denies any dyspnea she is not hypoxic, lower clinical sufficient for PE. EKG sinus rhythm, chest x-ray 2 views interpreted by myself and read by radiology shows no acute process. She is reassured. She states she has ibuprofen and Tylenol at home she will use. Monitor symptoms return precautions. All questions were answered. Radiography Diagnostic Testing: Clinical Impression(s) from Imaging Studies Chest X-Ray 05/01/22 17:53 IMPRESSION: Normal x-ray examination of the chest. Electronically Signed: Jose Alejandro Levy MD at 18:12 EST , EKG Initial EKG: Attestation: I personally reviewed and interpreted this EKG as follows: Comments: Sinus rate of 89, no ST or T wave changes. Discharge Plan Triage Chief Complaint: Chest Pain ED Provider: Brendan Mackay Dx/Rx/DC Orders Clinical Impression: Costochondritis, acute, Chest pain Instructions: Costochondritis Prescriptions: No Action diphenhydramine HCl [Benadryl] 25 mg capsule 25 mg PO QHS ondansetron 4 mg tablet,disintegrating 4 mg PO Q8H PRN (Reason: nausea and vomiting) Qty: 10 0RF naproxen 500 mg tablet 500 mg PO BID Qty: 20 0RF tamsulosin [Flomax] 0.4 mg capsule 0.4 mg PO DAILY Qty: 7 0RF promethazine 25 mg tablet 25 mg PO Q6H PRN (Reason: nausea and vomiting) Qty: 10 0RF medroxyprogesterone 150 mg/mL syringe See Rx Instructions .ROUTE .COMPLEX Qty: 1 0RF Dose Instruction: INJECT 1ML EVERY 3 MONTHS Rx Instructions: INJECT 1ML EVERY 3 MONTHS Primary Care Provider: Cathleen Dumont NP Referrals: Cathleen Dumont NP, [employer] [facility] [Primary Care Provider] - 1 Week if not improving Disposition Disposition: Home, Self Care Discharge Date/Time: 05/01/22 19:54
--- NOTE | 2022-05-01 17:50 | EKG12_ITS ---
Test Reason : DYSRHYTHMIA Blood Pressure : / mmHG Vent. Rate : 089 BPM Atrial Rate : 089 BPM P-R Int : 146 ms QRS Dur : 094 ms QT Int : 356 ms P-R-T Axes : 058 086 044 degrees QTc Int : 433 ms Normal sinus rhythm Normal ECG Confirmed by JOSE YANG, AVA ([id number]), editorial manager HUSSAIN HORVATH ([id number]) on 05/05/2022 9:13:21 AM Referred By: TL Confirmed By:AVA GARCIA MD
--- NOTE | 2022-05-01 17:53 | RAD_ITS ---
STUDY: X-RAY CHEST REASON FOR EXAM: Female, 31 years old. cough TECHNIQUE: Single frontal view of the chest. COMPARISON: CT chest May 02, 2021. Chest x-ray same day.. FINDINGS: The lungs are clear and expanded. There is no demonstrated pleural abnormality. Normal size heart. Normal mediastinum and esthela. Normal visualized pulmonary arteries. Normal visualized aortic arch and descending thoracic aorta. Normal visualized thoracic spine. Normal visualized ribs, clavicles, and shoulders. There is no demonstrated abnormality of the visualized soft tissue structures of the upper abdomen. RAD/Chest PA and Lateral IMPRESSION: Normal x-ray examination of the chest. Electronically Signed: Jose Alejandro Levy MD at 18:12 EST ,
== END 2022-05-01 19:54 | disposition home or self-care (01) ==
PROVIDERS: Emergency Provider Emergency Medicine; PCP Registered Nurse; Visit Provider Emergency Medicine
DX: R07.9 Chest pain, unspecified (principal); M94.0 Chondrocostal junction syndrome [Tietze]; F17.210 Nicotine dependence, cigarettes, uncomplicated
CPT/HCPCS: 71046; 93005; 99282

== ENCOUNTER 2023-02-22 16:36 | Emergency (ER) | payer MEDICAID, SELFPAY ==
[2023-02-22 16:37] VITALS: BP 108/66; PULSE 115; RESP 16; TEMP 36.8; O2SAT 99; BMI 19.0
--- NOTE | 2023-02-22 17:00 | CT_ITS ---
STUDY: CT ABDOMEN AND PELVIS WITHOUT CONTRAST REASON FOR EXAM: Female, 32 years old. left flank pain, urinary sx RADIATION DOSAGE (If Supplied By Facility): CTDIvol = ( 6.04 ) mGy, DLP = ( 282.37 ) mGycm TECHNIQUE: Transaxial images were obtained from the dome of the diaphragm to the symphysis pubis without oral contrast, and without intravenous contrast. Sagittal and coronal images were reconstructed. Individualized dose optimization techniques were used for this CT. COMPARISON: 02/25/2022 FINDINGS: The visualized lung bases are unremarkable. The visualized portions of the heart are within normal limits. Normal liver. The gallbladder is contracted. Normal spleen. Normal pancreas. Normal bilateral adrenal glands. Tiny (1 to 2 mm) nonobstructing stone in the midsection of right kidney. Similar tiny nonobstructing stones in the left kidney. No hydronephrosis, ureteral stone, ureteral dilatation.. Normal visualized stomach. Normal small intestine. Normal colon. There is non-visualization of the appendix. Normal abdominal aorta. Normal inferior vena cava. Normal retroperitoneum. Normal urinary bladder. Normal abdominal wall. Normal osseous structures. CT/Abdomen/Pelvis without Cont IMPRESSION: Bilateral tiny nonobstructing renal stones. Electronically Signed: Tyrel Loving MD at 19:05 [facility] ,
--- NOTE | 2023-02-22 17:07 | EDS_ITS ---
HPI HPI - GI History of Present Illness Chief Complaint: Flank Pain Informant: patient Narrative Narrative: Patient has had discomfort in her low back for the past month. For the past 2 weeks, she has had subjective fevers off-and-on, she has measured them up to 101.3 couple days ago, but continued to have subjective fevers that she has not measured, lower abdominal discomfort, she had dysuria once 2 weeks ago but none since but ever since then she has had urinary frequency and occasional hematuria. She states she went to urgent care last week, and according to the patient they told her you may have a kidney stone but we do not know and did not send her with any prescriptions. She is never had a kidney stone that she knows about before. She has had urinary tract infections before some of this feels like that. She states pain is in her low back but she also has some pain up in her CVA areas that is more prominent on the left. [facility] Medical History (Updated 02/22/23 @ 19:[address] Judd Patel MD) Anxiety and depression Gastritis Allergy/AdvReac Type Severity Reaction Status Date / Time latex Allergy Hives Verified 02/22/23 16:37 morphine Allergy Hives Verified 02/22/23 16:37 Penicillins Allergy Hives Verified 02/22/23 16:37 sulfamethoxazole AdvReac Mild STOMACH Verified 02/22/23 16:39 [From Bactrim] trimethoprim [From Bactrim] AdvReac Mild STOMACH Verified 02/22/23 16:39 Family History Grandmother Cancer lung Breast cancer Heart disease Grandfather Heart disease Surgical History S/P dilation and curettage Social History Smoking Status: Current every day smoker tobacco type: cigarettes alcohol intake: never substance use type: does not use caffeine: No what type of physical activity do you participate in: walking seatbelt use: sometimes do you feel safe at home: Yes additional social history: Anuj- Unemployed patient is unemployed ROS ROS ED Constitutional Constitutional ED: Reports fever(s) and subjective; Denies chills Eyes Eyes: Denies change in vision or diplopia ENT ENT ED: Denies rhinorrhea or sore throat Cardiovascular Cardiovascular: Denies chest pain or palpitations Respiratory/Chest Respiratory/Chest: Denies cough or dyspnea Gastrointestinal Gastrointestinal: Reports abdominal pain and nausea; Denies diarrhea or vomiting Genitourinary Genitourinary ED: Reports as per HPI, dysuria, hematuria, LMP (females 10-50) Details: Comment: (Unknown, on Depo shot, but missed her last Depo shot) and urinary frequency; Denies vaginal bleeding or vaginal discharge Musculoskeletal Musculoskeletal: Reports back pain; Denies neck pain Integumentary Denies abscess or rash Neurologic Neurologic: Denies headache(s), paresthesias or weakness Psychiatric Psychiatric: Denies anxiety or suicidal thoughts EXAM Physical Exam Const Vital Signs: 02/22/23 16:37 02/22/23 18:36 Temperature 98.3 F Temperature Source Temporal Pulse Rate 115 H Respiratory Rate 16 18 Blood Pressure 108/66 Blood Pressure Mean 80 Pulse Ox 99 Oxygen Delivery Method Room Air Room Air Positive well nourished and well developed General Appearance ED: well developed and NAD HEENT Reports moist mucous membranes normocephalic and atraumatic Eyes PERRL and EOMs intact bilaterally Neck full ROM and supple Resp normal respiratory effort and clear to auscultation bilaterally Cardio regular rate, regular rhythm and no murmurs Rate: Negative for tachycardic GI non-distended GI Narrative: Mild tenderness epigastrium and suprapubic only. No lateralizing pelvis tenderness. No distention. Auscultation: normoactive bowel sounds Palpation: soft Speculum Exam - Vagina: Negative for vaginal bleeding or vaginal discharge Back/Spine Back/Spine Narrative: Mild left CVA tenderness only, none on the right. Normal inspection no rashes. General Back: other FROM Extremity normal to inspection General Extremety ED: Negative for edema, pulses abnormal or tenderness General Extremity: Negative for edema or pulses abnormal Neuro oriented x3, CN's II-XII intact bilaterally and no sensory deficits noted Sensorium / Orientation: awake and alert Motor Exam: strength 5/5 throughout Skin no rashes or lesions noted and no wounds MDM MDM MDM Narrative Medical decision making narrative: This patient history and exam mostly consistent with cystitis, possibly early pyelonephritis, she is well-appearing not septic with normal vital signs she has not been vomiting or having significant back pain, and she wants to know if she has a stone. She is initially apprehensive about the CT but when advised that it does not require contrast and that I am happy to offer her CT she was comfortable with that. She was offered analgesics and declined even Toradol. Results of the tests are fairly unremarkable. She has a fairly low potassium which in my opinion does not need to be treated since this is incidental, she does not appear to have a urine infection, her is negative, her blood counts are normal she has no leukocytosis, and CT images are reviewed as well as report which I agree with, showing nothing acute. There are incidental bilateral tiny nephrolithiasis, and she does have calcium oxalate crystals in her urine, as well as some amorphous sediment which is nonspecific. We discussed kidney stones in her treatment, and the fact that she has no symptoms of recent ureterolithiasis given the CT and she does not have pyelonephritis at this time or any other indication for antibiotic. She is comfortable with that explanation, and then she offers the fact that since she is late getting her Depo shot, she has had cramps before when that is happen that go away a couple days after getting her shot. Certainly in the differential that this is uterine pain, no emergent ultrasound indicated since her is negative and she is comfortable with going home. Lab Data Attestation: I reviewed the patient's lab results. Labs: Laboratory Results - last 24 hr 02/22/23 02/22/23 16:45 17:34 WBC 5.6 RBC 4.44 Hgb 13.1 Hct 39.1 MCV 88.1 MCH 29.5 MCHC 33.5 RDW Std Deviation 39.0 RDW Coeff of Rasta 12.1 Plt Count 246 MPV 10.3 Immature Gran % (Auto) 0.200 Neut % (Auto) 49.9 Lymph % (Auto) 35.7 [place] % (Auto) 10.8 H Eos % (Auto) 2.7 Baso % (Auto) 0.7 Absolute Neuts (auto) 2.8 Absolute Lymphs (auto) 2.01 Nucleated RBC % 0 Sodium 141 Potassium 3.3 L Chloride 109 H Carbon Dioxide 28.0 Anion Gap 4 L BUN 7 Creatinine 0.78 Estim Creat Clear Calc 78.54 Est GFR (MDRD) Af Amer 111 Est GFR (MDRD) Non-Af 92 BUN/Creatinine Ratio 9.0 L Glucose 81 Calcium 8.6 Urine Color Yellow Urine Clarity Sl. Cloudy Urine pH 8.0 Ur Specific [place] 1.015 Urine Protein 15 H Urine Glucose (UA) Normal Urine Ketones Negative Urine Occult Blood Negative Urine Nitrite Negative Urine Bilirubin Negative Urine Urobilinogen 4 H Ur Leukocyte Esterase 25 H Urine RBC 0 SEEN Urine WBC 0 SEEN Ur Squamous Epith Cells 0 SEEN Calcium Oxalate Crystal 1+ Amorphous Sediment 2+ Urine Bacteria 0 SEEN Urine Mucus 0 SEEN Urine Test Negative Radiography Diagnostic Testing: Clinical Impression(s) from Imaging Studies Abdomen/Pelvis CT 02/22/23 17:00 IMPRESSION: Bilateral tiny nonobstructing renal stones. Electronically Signed: Tyrel Loving MD at 19:05 EST , Discharge Plan Triage Chief Complaint: Flank Pain ED Provider: Judd Patel Dx/Rx/DC Orders Clinical Impression: Acute left flank pain, Urinary frequency, Abdominal pain, suprapubic, Bilateral nephrolithiasis Instructions: ED Abdominal Pain Unkn Cause Fem, ED Kidney Stone Undescended No ... Stand Alone Forms: ED Work / School Excuse Primary Care Provider: Cathleen Dumont NP Referrals: Cathleen Dumont NP, CONTINUOUS DRYOUT OPERATOR HELPER-C [Primary Care Provider] - (or whoever you see for depo shot) Disposition Disposition: Home, Self Care
[2023-02-22 17:13] LABS: Bacteria 0 SEEN /hpf (None Seen); Mucous, Urine 0 SEEN /hpf (<or=2+); Red Blood Cells-Urine 0 SEEN /hpf (0-5); Squamous Epithelial Cells - UA 0 SEEN /hpf (5-10); White Blood Cells 0 SEEN /hpf (0-5)
[2023-02-22 17:25] LABS: Color, Urine Yellow (Yellow); Glucose, Dipstick Normal (Normal); Ketone-Dipstick Negative (Negative); Leukocyte Esterase-Dipstick 25 /ul (Negative); Nitrite-Dipstick Negative (Negative); Occult Blood-Urine Negative /ul (Negative); Protein-Dipstick 15 mg/dl (Negative); Specific Gravity, Urine 1.015 (1.002-1.030); Urine Bilirubin Dipstick Negative (Negative); Urine Clarity Sl. Cloudy (Clear); Urine Urobilinogen 4 mg/dl (Normal)
[2023-02-22 17:51] LABS: Absolute Lymphocyte Count 2.01 X10^3/uL (0.83-4.51); Absolute Neutrophil Count 2.8 X10^3/uL (2.0-7.7); Basophil# 0.04 X10^3/uL; Basophil% 0.7 % (0-1); Eosinophil# 0.15 X10^3/uL; Eosinophils% 2.7 % (0-5); Hematocrit 39.1 % (37-47); Hemoglobin 13.1 g/dL (12.0-15.0); Lymphocyte # 2.01 X10^3/ul (0.83-4.51); Lymphocyte % 35.7 % (19-41); Mean Corp Hgb Conc 33.5 g/dL (32-36); Mean Corpuscular Hgb 29.5 pg (27.0-32.0); Mean Corpuscular Volume 88.1 fL (81-99); Mean Platelet Vol. 10.3 fl (6.2-12.0); Monocyte# 0.61 X10^3/uL; Monocyte% 10.8 % (0-10); NRBC Flagged by Analyzer 0 % (0-5); Neutrophil # 2.81 X10^3/uL (2.7-7.7); Neutrophil % 49.9 % (47-70); Platelet Count 246 K/mm3 (150-450); RBC Distribution Width CV 12.1 % (11.6-14.6); Red Blood Count 4.44 M/mm3 (4.2-5.4); White Blood Count 5.6 K/mm3 (4.4-11.0)
[2023-02-22 17:52] LABS: Amorphous Sediment 2+; Calcium Oxalate Crystals Ur 1+ /hpf (<or=2+)
[2023-02-22 18:02] LABS: Internal QC Validated? YES +Cl - CLEAR BKGD; Pregnancy, Urine Negative Negative; Record Kit Lot#,Urine Preg 667200
[2023-02-22 18:08] LABS: Anion Gap 4 (5-15); BUN 7 mg/dL (7-18); Calcium,Total 8.6 mg/dL (8.5-10.1); Chloride 109 mmol/L (98-107); Creatinine, Serum 0.78 mg/dL (0.55-1.02); EST Glomerular Filtration Rate 92 mL/min (>60); Est Glom Filt Rate - Afr Amer 111 mL/min (>60); Estimated Creatinine Clearance 78.54 ml/min; Glucose 81 mg/dL (74-106); Potassium 3.3 mmol/L (3.5-5.1); Sodium Level 141 mmol/L (136-145)
[2023-02-22 18:36] VITALS: RESP 18
== END 2023-02-22 19:25 | disposition home or self-care (01) ==
PROVIDERS: Emergency Provider Emergency Medicine; PCP Registered Nurse; Visit Provider Emergency Medicine
DX: M54.50 Low back pain, unspecified (principal); R35.0 Frequency of micturition; F17.210 Nicotine dependence, cigarettes, uncomplicated; N20.2 Calculus of kidney with calculus of ureter
CPT/HCPCS: 74176; 80048; 81001; 81025; 85025; 99282

== ENCOUNTER → 2023-03-04 | Outpatient (CLI) | payer MEDICAID, SELFPAY ==
[2023-03-10 06:08] LABS: HPV APTIMA, High Risk Positive (Negative); HPV Genotype 16, Aptima Negative (Negative); HPV Genotype 18,45 Aptima Negative (Negative)
== END | disposition home or self-care (01) ==
LOC: LABSPEC 11:33
PROVIDERS: PCP Registered Nurse; Referring Provider Nurse Practitioner Women's Health; Visit Provider Nurse Practitioner Women's Health
DX: Z12.4 Encounter for screening for malignant neoplasm of cervix (principal)
CPT/HCPCS: 87624; 88175; G0145

== ENCOUNTER 2023-09-21 08:37 | Emergency (ER) | payer MEDICAID, SELFPAY ==
[2023-09-21 08:38] VITALS: BP 105/80; PULSE 103; RESP 16; TEMP 36.2; O2SAT 100; BMI 19.5
--- NOTE | 2023-09-21 09:08 | CT_ITS ---
STUDY: CT ABDOMEN AND PELVIS WITH CONTRAST REASON FOR EXAM: Female, 32 years old. Abdominal pain. Family H/O UC RADIATION DOSAGE (If Supplied By Facility): CTDIvol = ( 7.44 ) mGy, DLP = ( 236.11 ) mGycm TECHNIQUE: Oral and amp; IV Gastrografin and amp; 75mL Isovue-300 was administered. Transaxial images were obtained from the dome of the diaphragm to the symphysis pubis. Multiplanar coronal and sagittal images were reformatted. The protocol utilizes one or more of the following dose reduction techniques: automated exposure control, adjustment of mA and/or kV according to patient size,and/or use of iterative reconstruction technique. COMPARISON: Prior study dated: 02/22/2023 FINDINGS: The visualized lung bases are unremarkable. The visualized portions of the heart are within normal limits. Normal liver. Normal gallbladder and extrahepatic biliary system. Normal spleen. Normal pancreas. Normal bilateral adrenal glands. Tiny simple cyst in the right kidney for which no further follow-up exam is needed. The presence of contrast can obscure small stones. No evidence of hydronephrosis. Normal visualized stomach. Normal small intestine. The ascending colon is not well distended. No evidence of acute diverticulitis. The appendix is visualized and appears normal. Normal abdominal aorta. No retroperitoneal adenopathy. Normal urinary bladder. Normal abdominal wall. Normal osseous structures. CT/Abdomen/Pelvis WITH Contrast IMPRESSION: 1. No focal acute inflammatory process. 2. Ascending colon is suboptimally distended. Electronically Signed: John Jarrett MD at 11:30 EDT ,
--- NOTE | 2023-09-21 09:09 | EX.ED.DYSGE1 ---
HPI History of Present Illness Chief Complaint: Abd Pain Informant: patient Onset/Context/Timing Onset: Days (3 days) Narrative Narrative: Patient presents secondary to abdominal pain with nausea and diarrhea. Symptoms started 2 days ago. She states last weekend she had similar symptoms that lasted only 1 day. This morning she was on her way to work when she got severe lower abdominal cramping, broke out in a sweat, and instantly had to go the bathroom. She denies fever or chills. No blood in her stool. Mother does have history of ulcerative colitis. Patient states that she was seen by her TELEPHONE DIRECTORY DISTRIBUTOR DRIVER on the and had a negative test at that time. [facility] Medical History (Updated 09/21/23 @ 11:[address] Kellie Perez MD) Gastritis Anxiety and depression Home Medications ?Medication ?Instructions ?Recorded ?Last Taken ?Type medroxyprogesterone 150 mg/mL 150 mg IM [id number] #1 mL 09/17/23 Unknown Rx intramuscular syringe (Depo-Provera) dicyclomine 20 mg tablet 20 mg PO BID PRN abdominal pain 09/21/23 Unknown Rx #20 tabs ondansetron 4 mg disintegrating 4 mg PO Q8H PRN PRN Nausea #10 tabs 09/21/23 Unknown Rx tablet Allergy/AdvReac Type Severity Reaction Status Date / Time latex Allergy Hives Verified 09/21/23 08:38 morphine Allergy Hives Verified 09/21/23 08:38 Penicillins Allergy Hives Verified 09/21/23 08:38 sulfamethoxazole (From AdvReac Mild STOMACH Verified 09/21/23 08:38 Bactrim) trimethoprim (From Bactrim) AdvReac Mild STOMACH Verified 09/21/23 08:38 Family History Grandmother Cancer lung Breast cancer Heart disease Grandfather Heart disease Surgical History S/P dilation and curettage Social History Smoking Status: Current every day smoker tobacco type: cigarettes alcohol intake: never substance use type: does not use caffeine: No what type of physical activity do you participate in: walking seatbelt use: sometimes do you feel safe at home: Yes additional social history: Anuj- Unemployed patient is unemployed ROS ROS ED Constitutional Constitutional ED: Reports sweats; Denies chills or fever(s) Eyes Eyes: Denies change in vision or discharge from eye(s) ENT ENT ED: Denies discharge from eye(s), rhinorrhea or sore throat Cardiovascular Cardiovascular: Denies chest pain or palpitations Respiratory/Chest Respiratory/Chest: Denies cough or dyspnea Gastrointestinal Gastrointestinal: Reports abdominal pain, diarrhea and nausea; Denies vomiting Genitourinary Genitourinary ED: Denies dysuria Musculoskeletal Musculoskeletal: Denies back pain or extremity pain Integumentary Denies Abrasions or rash Neurologic Neurologic: Denies headache(s) or weakness Psychiatric Psychiatric: Denies anxiety or depression Allergic/Immunologic Allergic/Immunologic ED: Denies lip swelling or urticaria EXAM Physical Exam Const Vital Signs: 09/21/23 08:38 09/21/23 10:37 Temperature 97.1 F L Temperature Source Temporal Pulse Rate 103 H 76 Respiratory Rate 16 16 Blood Pressure 105/80 99/70 Blood Pressure Mean 88 79 Pulse Ox 100 100 Oxygen Delivery Method Room Air Room Air Positive well nourished and well developed General Appearance ED: well developed HEENT Reports moist mucous membranes Eyes EOMs intact bilaterally Chest Wall inspection of chest normal and palpation of chest normal Resp normal respiratory effort and clear to auscultation bilaterally Cardio regular rate and regular rhythm GI GI Narrative: Abdomen soft with mild periumbilical abdominal tenderness. No guarding or rebound. Hypoactive bowel sounds. Extremity normal to inspection Neuro oriented x3 and no sensory deficits noted Motor Exam: strength 5/5 throughout Psych mental status grossly normal Skin no rashes or lesions noted MDM MDM MDM Narrative Medical decision making narrative: IV line established. Labwork obtained to evaluate for leukocytosis, anemia, and electrolyte derangement. CT scan of the abdomen pelvis obtained to evaluate for potential ulcerative colitis given her current symptoms and family history. History & Record Review Discussion w/independent historian: Patient Lab Data Attestation: I reviewed the patient's lab results. Labs: Laboratory Results - last 24 hr 09/21/23 09/21/23 09:12 09:17 WBC 5.5 RBC 4.68 Hgb 13.8 Hct 41.7 MCV 89.1 MCH 29.5 MCHC 33.1 RDW Std Deviation 39.8 RDW Coeff of [place]asta 12.0 Plt Count 175 MPV 10.0 Immature Gran % (Auto) 0.200 Neut % (Auto) 65.6 Lymph % (Auto) 19.3 [place] % (Auto) 11.8 H Eos % (Auto) 2.7 Baso % (Auto) 0.4 Absolute Neuts (auto) 3.6 Absolute Lymphs (auto) 1.06 Nucleated RBC % 0 Sodium 139 Potassium 3.8 Chloride 108 H Carbon Dioxide 24.0 Anion Gap 7 BUN 10 Creatinine 0.74 Estim Creat Clear Calc 85.17 Est GFR (MDRD) Af Amer 119 Est GFR (MDRD) Non-Af 98 BUN/Creatinine Ratio 13.6 Glucose 98 Calcium 9.3 Total Bilirubin 0.20 Direct Bilirubin 0.11 AST 32 ALT 34 Alkaline Phosphatase 53 Total Protein 6.7 Albumin 3.8 Globulin 2.9 Urine Color Yellow Urine Clarity Sl. Cloudy Urine pH 7.0 Ur Specific [place] 1.010 Urine Protein Negative Urine Glucose (UA) Normal Urine Ketones 5 H Urine Occult Blood Negative Urine Nitrite Negative Urine Bilirubin Negative Urine Urobilinogen Normal Ur Leukocyte Esterase Negative Urine RBC 0-5 SEEN Urine WBC 0-5 SEEN Ur Squamous Epith Cells 0-5 SEEN Urine Bacteria 1+ Urine Mucus 0 SEEN Radiography Diagnostic Testing: Clinical Impression(s) from Imaging Studies Abdomen/Pelvis CT 09/21/23 09:08 IMPRESSION: 1. No focal acute inflammatory process. 2. Ascending colon is suboptimally distended. Electronically Signed: John Jarrett MD at 11:30 EDT , Treatment and Re-Evaluation :: Patient given a dose of Zofran for nausea but declines anything for pain. CBC was normal white count of 5.5 with normal differential. Hemoglobin is 13.8. Chemistry studies unremarkable. LFTs are normal. Urinalysis reveals 1+ bacteria with no other signs of infection. She has no urinary symptoms. CT scan of the abdomen pelvis reveals no focal acute inflammatory process. On repeat examination patient resting comfortably. Test results discussed with her. At this time I see no evidence of colitis or ulcerative colitis. I will treat her with Zofran and Bentyl. She is referred to GI to establish care if she continues to have problems. Patient does become tearful when we are discussing test results and thinks that some of her symptoms may be secondary to her anxiety which tends to be worse on the weekends. I will also refer her to [facility] for help as needed. Discharge Plan Triage Chief Complaint: Abd Pain ED Provider: Kellie Perez Dx/Rx/DC Orders Clinical Impression: Abdominal pain Instructions: ED Abdominal Pain Unkn Cause Fem, ED Diarrhea, Unknown Cause Prescriptions: New ondansetron 4 mg tablet,disintegrating 4 mg PO Q8H PRN PRN (Reason: Nausea) Qty: 10 0RF dicyclomine 20 mg tablet 20 mg PO BID PRN (Reason: abdominal pain) Qty: 20 0RF No Action medroxyprogesterone [Depo-Provera] 150 mg/mL syringe 150 mg IM [id number] Qty: 1 0RF Stand Alone Forms: ED Work / School Excuse Primary Care Provider: Cathleen Dumont NP Referrals: Edmund Caraballo DO [Med Staff - Wood Car Builder] - As Needed Fredis Ye MD [Non-Staff] - As Needed Cathleen Dumont NP, CUTTING AND BONING SUPERVISOR-C [Primary Care Provider] - 1 Week if not improving Print Language: Ecuadorean Disposition Disposition: Home, Self Care
[2023-09-21] MEDS: 0.9% Normal Saline (1000mL) 1,000 ML 150 ML IV (09:19)
[2023-09-21 09:20] LABS: Absolute Lymphocyte Count 1.06 X10^3/uL (0.83-4.51); Absolute Neutrophil Count 3.6 X10^3/uL (2.0-7.7); Basophil# 0.02 X10^3/uL; Basophil% 0.4 % (0-1); Eosinophil# 0.15 X10^3/uL; Eosinophils% 2.7 % (0-5); Hematocrit 41.7 % (37-47); Hemoglobin 13.8 g/dL (12.0-15.0); Lymphocyte # 1.06 X10^3/ul (0.83-4.51); Lymphocyte % 19.3 % (19-41); Mean Corp Hgb Conc 33.1 g/dL (32-36); Mean Corpuscular Hgb 29.5 pg (27.0-32.0); Mean Corpuscular Volume 89.1 fL (81-99); Monocyte# 0.65 X10^3/uL; Monocyte% 11.8 % (0-10); NRBC Flagged by Analyzer 0 % (0-5); Neutrophil % 65.6 % (47-70); Platelet Count 175 K/mm3 (150-450); RBC Distribution Width SD 39.8 fl (35.1-43.9); Red Blood Count 4.68 M/mm3 (4.2-5.4); White Blood Count 5.5 K/mm3 (4.4-11.0)
[2023-09-21 09:21] LABS: Mucous, Urine 0 SEEN /hpf (<or=2+)
[2023-09-21 09:29] LABS: Color, Urine Yellow (Yellow); Glucose, Dipstick Normal (Normal); Ketone-Dipstick 5 mg/dl (Negative); Leukocyte Esterase-Dipstick Negative /ul (Negative); Nitrite-Dipstick Negative (Negative); Occult Blood-Urine Negative /ul (Negative); Protein-Dipstick Negative (Negative); Urine Bilirubin Dipstick Negative (Negative); Urine Clarity Sl. Cloudy (Clear); Urine Urobilinogen Normal (Normal)
[2023-09-21] MEDS: Ondansetron 4 MG/2 ML Vial IV (09:31)
[2023-09-21 09:51] LABS: Bacteria 1+ /hpf (None Seen); Squamous Epithelial Cells - UA 0-5 SEEN /hpf (5-10)
[2023-09-21 09:52] LABS: Red Blood Cells-Urine 0-5 SEEN /hpf (0-5); White Blood Cells 0-5 SEEN /hpf (0-5)
[2023-09-21 09:52] LABS: AST(SGOT) 32 U/L (15-37); Alanine Aminotransfer ALT/SGPT 34 U/L (13-56); Albumin, Serum 3.8 g/dL (3.2-5.0); Alkaline Phosphatase 53 U/L (45-117); Anion Gap 7 (5-15); BUN 10 mg/dL (7-18); BUN/Creat Ratio 13.6 RATIO (10-20); Bilirubin, Direct 0.11 mg/dL (0.00-0.30); Calcium,Total 9.3 mg/dL (8.5-10.1); Chloride 108 mmol/L (98-107); Creatinine, Serum 0.74 mg/dL (0.55-1.02); EST Glomerular Filtration Rate 98 mL/min (>60); Est Glom Filt Rate - Afr Amer 119 mL/min (>60); Estimated Creatinine Clearance 85.17 ml/min; Globulin 2.9 g/dL (2.2-4.2); Glucose 98 mg/dL (74-106); Potassium 3.8 mmol/L (3.5-5.1); Protein, Total 6.7 g/dL (6.4-8.2); Sodium Level 139 mmol/L (136-145)
[2023-09-21 10:37] VITALS: BP 99/70; PULSE 76; RESP 16; O2SAT 100
[2023-09-21 11:58] VITALS: BP 136/62; PULSE 71; RESP 16; TEMP 36.7; O2SAT 97
== END 2023-09-21 11:59 | disposition home or self-care (01) ==
PROVIDERS: Emergency Provider Emergency Medicine; PCP Registered Nurse; Visit Provider Emergency Medicine
DX: R10.9 Unspecified abdominal pain (principal); R19.7 Diarrhea, unspecified; R11.0 Nausea; F17.210 Nicotine dependence, cigarettes, uncomplicated
CPT/HCPCS: 74177; 80048; 80076; 81001; 85025; 96361; 96374; 99283; J7030; Q9967; A4216; J2405

== ENCOUNTER 2023-10-30 17:16 | Emergency (ER) | payer MEDICAID, SELFPAY ==
[2023-10-30 17:17] VITALS: BP 135/85; PULSE 118; RESP 20; TEMP 36.4; O2SAT 98
[2023-10-30 17:19] VITALS: BP 135/85; PULSE 116; RESP 20; TEMP 36.6; O2SAT 98
--- NOTE | 2023-10-30 17:43 | EKG12_ITS ---
Test Reason : cp Blood Pressure : / mmHG Vent. Rate : 088 BPM Atrial Rate : 088 BPM P-R Int : 140 ms QRS Dur : 090 ms QT Int : 346 ms P-R-T Axes : 075 081 045 degrees QTc Int : 418 ms Normal sinus rhythm RSR' or QR pattern in V1 suggests right ventricular conduction delay Borderline ECG Confirmed by RUEL YANG, JONAH ([id number]), senior technical editor KERRIE GARCIA ([id number]) on 11/03/2023 1:59:17 PM Referred By: Reece Confirmed By:EVELYN LIPSCOMB MD
--- NOTE | 2023-10-30 17:44 | ED.VIS.CHEST ---
HPI History of Present Illness Chief Complaint: Chest Pain Informant: patient Narrative Narrative: 32-year-old female started getting sick with her significant other about 1 week ago, feeling malaised, and occasional cough, they both went to urgent care and they were both diagnosed with pneumonia at the same time, and were placed on a Z-Iglesia. She finished that 4 days ago. Ever since she has been having some off-and-on chest tightness upper chest diffuse nonradiating, and then in the last day or 2 she has had intermittent pains both anterior lower ribs below her breast, that seem random and occasionally worse with moving and breathing. No abdominal symptoms or pain. No syncope or palpitations. No fevers or chills. No leg pain or swelling. Better after she takes ibuprofen but then recurs later. [facility] Medical History (Updated 10/30/23 @ 19:[address] Judd Patel MD) Gastritis Anxiety and depression Home Medications ?Medication ?Instructions ?Recorded ?Last Taken ?Type dicyclomine 20 mg tablet 20 mg PO BID PRN abdominal pain 09/21/23 Unknown Rx #20 tabs ondansetron 4 mg disintegrating 4 mg PO Q8H PRN PRN Nausea #10 tabs 09/21/23 Unknown Rx tablet medroxyprogesterone 150 mg/mL 150 mg IM [id number] #1 mL 09/22/23 Unknown Rx intramuscular syringe (Depo-Provera) Allergy/AdvReac Type Severity Reaction Status Date / Time latex Allergy Hives Verified 10/30/23 17:16 morphine Allergy Hives Verified 10/30/23 17:16 Penicillins Allergy Hives Verified 10/30/23 17:16 sulfamethoxazole (From AdvReac Mild STOMACH Verified 10/30/23 17:16 Bactrim) trimethoprim (From Bactrim) AdvReac Mild STOMACH Verified 10/30/23 17:16 Family History Grandmother Cancer lung Breast cancer Heart disease Grandfather Heart disease Surgical History S/P dilation and curettage Social History Smoking Status: Current every day smoker tobacco type: cigarettes alcohol intake: never substance use type: does not use caffeine: No what type of physical activity do you participate in: walking seatbelt use: sometimes do you feel safe at home: Yes additional social history: Anuj- Unemployed patient is unemployed ROS ROS ED Constitutional Constitutional ED: Denies chills or fever(s) Eyes Eyes: Denies change in vision or diplopia ENT ENT ED: Denies rhinorrhea or sore throat Cardiovascular Cardiovascular: Reports chest pain; Denies orthopnea or palpitations Respiratory/Chest Respiratory/Chest: Reports dyspnea; Denies cough, dyspnea on exertion or orthopnea Gastrointestinal Gastrointestinal: Denies abdominal pain, diarrhea, nausea or vomiting Genitourinary Genitourinary ED: Denies dysuria or hematuria Musculoskeletal Musculoskeletal: Denies back pain or neck pain Integumentary Denies abscess or rash Neurologic Neurologic: Denies headache(s), paresthesias or weakness Psychiatric Psychiatric: Denies suicidal thoughts EXAM Physical Exam Const Vital Signs: 10/30/23 17:17 10/30/23 17:19 10/30/23 17:47 Temperature 97.6 F L 97.9 F Temperature Source Temporal Temporal Pulse Rate 118 H 116 H Respiratory Rate 20 H 20 H Respiratory Effort Respiratory Pattern Blood Pressure 135/85 H 135/85 H Blood Pressure Mean 101 101 Pulse Ox 98 98 Oxygen Delivery Method Room Air Room Air Room Air 10/30/23 17:47 10/30/23 18:26 Temperature 97.9 F Temperature Source Temporal Pulse Rate 81 Respiratory Rate 18 Respiratory Effort Normal Non-Labored Respiratory Pattern Normal Blood Pressure 102/71 Blood Pressure Mean 81 Pulse Ox 100 Oxygen Delivery Method Room Air Positive well nourished and well developed General Appearance ED: well developed and NAD HEENT Reports moist mucous membranes normocephalic and atraumatic Eyes PERRL and EOMs intact bilaterally Neck full ROM and supple Chest Wall inspection of chest normal Chest Narrative: Mildly tender right and left lower anterior rib cage. No crepitance no step-off. Resp normal respiratory effort and clear to auscultation bilaterally Cardio regular rate, regular rhythm and no murmurs GI non-tender and non-distended Auscultation: normoactive bowel sounds Palpation: soft Back/Spine no CVA tenderness General Back: other FROM Extremity normal to inspection General Extremety ED: Negative for edema, pulses abnormal or tenderness General Extremity: Negative for edema or pulses abnormal Neuro oriented x3, CN's II-XII intact bilaterally and no sensory deficits noted Sensorium / Orientation: awake and alert Motor Exam: strength 5/5 throughout Psych Psych Narrative: A little anxious Skin no rashes or lesions noted and no wounds Heart Score History: Slightly/Non-Suspicious ECG: Normal Age: </= 45 years Risk Factors: 1 or 2 Risk Factors Troponin: </= Normal Limit Score: 1 MDM MDM MDM Narrative Medical decision making narrative: I think most of this is musculoskeletal, there may also be an esophageal component, but we tested her for cardiac etiologies including myocarditis getting troponin and EKG both of which are normal in my opinion, and a two-view chest x-ray to evaluate status of her pneumonia. 2 views of my interpretation are normal radiology was in agreement. She is doing well here vital signs are normal she was initially little tachycardic, not because I think she has a PE but because she was anxious. She could consider taking an H2 izabella or PPI, NSAIDs, her potassium is little low so we are replacing that upon arrival, that could be causing muscle spasms or twitching. Follow-up advised if symptoms persist she is comfortable with discharge and this plan. Lab Data Attestation: I reviewed the patient's lab results. Labs: Laboratory Results - last 24 hr 10/30/23 17:34 WBC 12.0 H RBC 4.72 Hgb 13.4 Hct 40.8 MCV 86.4 MCH 28.4 MCHC 32.8 RDW Std Deviation 37.8 RDW Coeff of [place]asta 12.0 Plt Count 272 MPV 9.9 Immature Gran % (Auto) 1.500 H Neut % (Auto) 48.5 Lymph % (Auto) 40.6 [place] % (Auto) 8.2 Eos % (Auto) 0.5 Baso % (Auto) 0.7 Absolute Neuts (auto) 5.8 Absolute Lymphs (auto) 4.85 H Nucleated RBC % 0 Sodium 141 Potassium 3.3 L Chloride 108 H Carbon Dioxide 27.0 Anion Gap 6 BUN 13 Creatinine 0.82 Est GFR (MDRD) Af Amer 105 Est GFR (MDRD) Non-Af 87 BUN/Creatinine Ratio 15.9 Glucose 97 Calcium 8.7 Troponin I High Sens < 3 L Radiography Diagnostic Testing: Clinical Impression(s) from Imaging Studies Chest X-Ray 10/30/23 17:50 IMPRESSION: Normal x-ray examination of the chest. Electronically Signed: Bowen Vazquez MD at 18:14 EDT , Rhythm Strip Rhythm Strip: Sinus Tach Rate: 102 Ectopy: None EKG Initial EKG: Attestation: I personally reviewed and interpreted this EKG as follows: Interpretation: Sinus Rhythm and No Acute Injury Pattern Comments: nml EKG Discharge Plan Triage Chief Complaint: Chest Pain ED Provider: Judd Patel Dx/Rx/DC Orders Clinical Impression: Chest pain, unspecified, Acute chest wall pain, Hypokalemia Instructions: ED Chest Pain, Noncardiac Prescriptions: No Action medroxyprogesterone [Depo-Provera] 150 mg/mL syringe 150 mg IM [id number] Qty: 1 1RF ondansetron 4 mg tablet,disintegrating 4 mg PO Q8H PRN PRN (Reason: Nausea) Qty: 10 0RF dicyclomine 20 mg tablet 20 mg PO BID PRN (Reason: abdominal pain) Qty: 20 0RF Primary Care Provider: Cathleen Dumont NP Referrals: Cathleen Dumont SPECIAL EVENTS DRIVER, [facility] [Primary Care Provider] - 10-14 Days if not better Activity Restrictions/Additional Instructions: If you continue to have upper chest tightness, you may consider trying your albuterol inhaler to see if that helps, which would help reactive airway/lung causes, or reflux medicines which will help some esophagus-related issues. Print Language: Romanian Disposition Disposition: Home, Self Care
--- NOTE | 2023-10-30 17:50 | RAD_ITS ---
STUDY: X-RAY CHEST REASON FOR EXAM: Female, 32 years old. Chest pain, fever TECHNIQUE: PA and lateral views of the chest. COMPARISON: 05/01/2022 FINDINGS: EKG leads overlie the chest The lungs are clear and expanded. There is no demonstrated pleural abnormality. Normal size heart. Normal mediastinum and esthela. Normal visualized pulmonary arteries. Normal visualized aortic arch and descending thoracic aorta. Normal visualized thoracic spine. Normal visualized ribs, clavicles, and shoulders. There is no demonstrated abnormality of the visualized soft tissue structures of the upper abdomen. RAD/Chest PA and Lateral IMPRESSION: Normal x-ray examination of the chest. Electronically Signed: Bowen Vazquez MD at 18:14 EDT ,
[2023-10-30 17:57] LABS: Absolute Lymphocyte Count 4.85 X10^3/uL (0.83-4.51); Absolute Neutrophil Count 5.8 X10^3/uL (2.0-7.7); Basophil# 0.08 X10^3/uL; Basophil% 0.7 % (0-1); Eosinophil# 0.06 X10^3/uL; Eosinophils% 0.5 % (0-5); Hematocrit 40.8 % (37-47); Hemoglobin 13.4 g/dL (12.0-15.0); Lymphocyte # 4.85 X10^3/ul (0.83-4.51); Lymphocyte % 40.6 % (19-41); Mean Corp Hgb Conc 32.8 g/dL (32-36); Mean Corpuscular Hgb 28.4 pg (27.0-32.0); Mean Corpuscular Volume 86.4 fL (81-99); Mean Platelet Vol. 9.9 fl (6.2-12.0); Monocyte# 0.98 X10^3/uL; Monocyte% 8.2 % (0-10); NRBC Flagged by Analyzer 0 % (0-5); Neutrophil # 5.81 X10^3/uL (2.7-7.7); Neutrophil % 48.5 % (47-70); Platelet Count 272 K/mm3 (150-450); RBC Distribution Width SD 37.8 fl (35.1-43.9); Red Blood Count 4.72 M/mm3 (4.2-5.4)
[2023-10-30 18:15] LABS: Anion Gap 6 (5-15); BUN 13 mg/dL (7-18); BUN/Creat Ratio 15.9 RATIO (10-20); Calcium,Total 8.7 mg/dL (8.5-10.1); Chloride 108 mmol/L (98-107); Creatinine, Serum 0.82 mg/dL (0.55-1.02); EST Glomerular Filtration Rate 87 mL/min (>60); Est Glom Filt Rate - Afr Amer 105 mL/min (>60); Glucose 97 mg/dL (74-106); Potassium 3.3 mmol/L (3.5-5.1); Sodium Level 141 mmol/L (136-145); Troponin-I HS < 3 pg/mL (3.0-54.0)
[2023-10-30 18:26] VITALS: BP 102/71; PULSE 81; RESP 18; TEMP 36.6; O2SAT 100
[2023-10-30 19:16] VITALS: BP 102/71; PULSE 78; RESP 19; O2SAT 98
[2023-10-30] MEDS: Potassium Chloride Oral Tablet 20 MEQ PO (19:40)
[2023-10-30 19:41] VITALS: BP 115/75; PULSE 87; RESP 18; TEMP 36.6; O2SAT 100
== END 2023-10-30 19:44 | disposition home or self-care (01) ==
PROVIDERS: Emergency Provider Emergency Medicine; PCP Registered Nurse; Visit Provider Emergency Medicine
DX: R07.89 Other chest pain (principal); E87.6 Hypokalemia; F17.210 Nicotine dependence, cigarettes, uncomplicated; R06.00 Dyspnea, unspecified
CPT/HCPCS: 71046; 80048; 84484; 85025; 93005; 99284; J7050

== ENCOUNTER 2023-12-25 23:32 | Emergency (ER) | payer MEDICAID, SELFPAY ==
[2023-12-25 23:33] VITALS: BP 136/91; PULSE 116; RESP 18; TEMP 36.9; O2SAT 98; BMI 19.0
--- NOTE | 2023-12-25 23:36 | EX.ED.DYSGE1 ---
HPI History of Present Illness Chief Complaint: Headache PFSH PFSH Medical History (Updated 12/25/23 @ 23:[address] Isaias Rooney DO) Gastritis Anxiety and depression Home Medications ?Medication ?Instructions ?Recorded ?Last Taken ?Type dicyclomine 20 mg tablet 20 mg PO BID PRN abdominal pain 09/21/23 Unknown Rx #20 tabs ondansetron 4 mg disintegrating 4 mg PO Q8H PRN PRN Nausea #10 tabs 09/21/23 Unknown Rx tablet medroxyprogesterone 150 mg/mL 150 mg IM [id number] #1 mL 09/22/23 Unknown Rx intramuscular syringe (Depo-Provera) Allergy/AdvReac Type Severity Reaction Status Date / Time azithromycin (From z pack) Allergy Intermediate Nausea Verified 12/25/23 23:33 latex Allergy Hives Verified 12/25/23 23:33 morphine Allergy Hives Verified 12/25/23 23:33 Penicillins Allergy Hives Verified 12/25/23 23:33 sulfamethoxazole (From AdvReac Mild STOMACH Verified 12/25/23 23:33 Bactrim) trimethoprim (From Bactrim) AdvReac Mild STOMACH Verified 12/25/23 23:33 Family History Grandmother Cancer lung Breast cancer Heart disease Grandfather Heart disease Surgical History S/P dilation and curettage Social History Smoking Status: Current every day smoker tobacco type: cigarettes alcohol intake: never substance use type: does not use caffeine: No what type of physical activity do you participate in: walking seatbelt use: sometimes do you feel safe at home: Yes additional social history: Anuj- Unemployed patient is unemployed EXAM Physical Exam Const Vital Signs: 12/25/23 23:33 Temperature 98.4 F Temperature Source Oral Pulse Rate 116 H Respiratory Rate 18 Blood Pressure 136/91 H Blood Pressure Mean 106 Pulse Ox 98 Oxygen Delivery Method Room Air MDM MDM MDM Narrative Medical decision making narrative: HISTORY OF PRESENT ILLNESS: 33-year-old female history of gastritis, anxiety and depression presents with concern for headache and ear pain. The patient states she did have a headache. Pain is left-sided. She is also concerned for a left-sided ear infection. She also states she is a work note. She notes her headache started earlier today, was gradual in onset and is located just behind her left ear. It is not associated with the following: Patient denies sudden onset or thunderclap headache, denies maximal intensity within 1 minute, vomiting, neck pain, stiffness, changes in vision, fever, history malignancy, syncope, or seizures associated with headache. REVIEW OF SYSTEMS: Pertinent positives: Headache, ear pain Pertinent negatives: Loss of vision, incoordination, loss of movement or sensation PHYSICAL EXAM: Nursing triage notes reviewed, Vital signs reviewed Constitutional: please see mdm HENT: MMM, right TM pearly olivo with no obvious hyperemia or middle ear effusion. Left TM also without hyperemia however there is decreased light reflex consistent with likely middle ear effusion. Eyes: Pupils equal round and reactive to light, Extraocular muscles intact, visual gonsales intact Neck: No stridor, no JVD, full neck ROM Lungs: Clear to auscultation, No wheezing or rales. Heart: Regular rate and rhythm, No murmurs, No rubs and No gallops, 2+ distal pulses (radial, femoral, posterior tibial) in all extremities Extremities: No edema Neuro: Alert and oriented x3, neuro exam at baseline, cranial nerves II through XII are intact. No pain with extraocular muscle movement. There is negative test of skew. 5 of 5 strength in upper and lower extremities in flexion extension. Intact sensation to light touch in upper and lower extremity dermatomes. No truncal or extremity ataxia. No dysdiadochokinesia. Normal gait. 2+ reflexes in upper and lower extremities. No meningeal signs. Negative Babinski. NIH of 0. Skin: No rash or lesions noted MEDICAL DECISION MAKING: Chief Complaint: Headache/ External records reviewed: No recent advanced imaging of the brain Factors affecting care: As per HPI [facility] Narrative: The patient was initially tachycardic otherwise afebrile and nontoxic-appearing. Exam with left middle ear effusion concerning for otitis media given pain. I considered the following differential diagnosis: ICH, subarachnoid hemorrhage, meningitis, mastoiditis, otitis media, viral URI While I considered ICH, subarachnoid hemorrhage meningitis and mastoiditis patient had no physical exam or Storck factors are suggestive of these more life-threatening etiologies. Will consider obtaining advanced imaging, LP, I think these interventions are indicated at this time. I suspect her symptoms are related to possible otitis media given left middle ear effusion. Will give prophylactic antibiotics and have her follow with her primary care physician The patient and/or family, caregivers express understanding. The patient and/or family, caregivers agrees with the plan. Shared decision making: I will have a discussion with the patient and or visitors regarding risk/benefits of further testing or admission. They will be made aware of of the risk/benefits inherent in this decision they will be given the opportunity to voice understanding. Total critical care time today provided was at least 0 minutes. This excludes separately billable procedures. Critical care time (if documented) is secondary to the patient having high probability of clinically significant/life threatening deterioration in the patient's condition which required my urgent intervention. Impression: 1. Headache 2. Otitis media Dispo: Discharge home This note was generated with See[employer] dictation software. It may contain incorrect words, spelling, and punctuation that were not noted in review of the chart prior to signing. Discharge Plan Triage Chief Complaint: Headache ED Provider: Isaias Rooney Dx/Rx/DC Orders Clinical Impression: Otitis media Instructions: ED Otitis Media Adult Prescriptions: No Action medroxyprogesterone [Depo-Provera] 150 mg/mL syringe 150 mg IM [id number] Qty: 1 1RF ondansetron 4 mg tablet,disintegrating 4 mg PO Q8H PRN PRN (Reason: Nausea) Qty: 10 0RF dicyclomine 20 mg tablet 20 mg PO BID PRN (Reason: abdominal pain) Qty: 20 0RF Stand Alone Forms: ED Work / School Excuse Primary Care Provider: Cathleen Dumont NP Referrals: Cathleen Dumont NP, [facility] MECHANIC-C [Primary Care Provider] - Activity Restrictions/Additional Instructions: Thank you for trusting us with your care today! You have been diagnosed a middle ear infection. Please take Tylenol (2 pills, 650 mg), ibuprofen (2 pills, 400 mg) every 6 hours as needed for pain and fever control. Please take cefdinir as prescribed and until course complete. Please return to the emergency department if your symptoms change or worsen. Please follow with your primary care physician for further outpatient evaluation and management. Print Language: Ghanaian Disposition Disposition: Home, Self Care
[2023-12-26] MEDS: Ibuprofen 200 MG Tablet 400 MG PO (00:10)
[2023-12-26] MEDS: Cefdinir 300 MG Capsule 600 MG PO (00:11)
[2023-12-26 00:28] VITALS: BP 132/76; PULSE 108; RESP 16; TEMP 37.1; O2SAT 98
== END 2023-12-26 00:30 | disposition home or self-care (01) ==
PROVIDERS: Emergency Provider Emergency Medicine; PCP Registered Nurse; Visit Provider Emergency Medicine
DX: H66.92 Otitis media, unspecified, left ear (principal); R51.9 Headache, unspecified; F17.210 Nicotine dependence, cigarettes, uncomplicated
CPT/HCPCS: 99283

== ENCOUNTER → 2024-03-02 | Outpatient (CLI) | payer MEDICAID, SELFPAY ==
[2024-03-07 04:06] LABS: Chlamydia By Nucleic Acid AMP Negative (Negative); Gonococcus By Nucleic Acid AMP Negative (Negative)
[2024-03-14 20:08] LABS: HPV APTIMA, High Risk Positive (Negative); HPV Genotype 16, Aptima Negative (Negative); HPV Genotype 18,45 Aptima Negative (Negative)
== END | disposition home or self-care (01) ==
LOC: LABSPEC 14:45
PROVIDERS: PCP Registered Nurse; Referring Provider Nurse Practitioner Family; Visit Provider Nurse Practitioner Family
DX: Z12.4 Encounter for screening for malignant neoplasm of cervix (principal); Z20.2 Contact with and (suspected) exposure to infections with a predominantly sexual mode of transmission; N89.8 Other specified noninflammatory disorders of vagina
CPT/HCPCS: 87070; 87205; 87491; 87591; 87624; 88175; G0145

== ENCOUNTER → 2024-03-09 | Outpatient (CLI) | payer MEDICAID, SELFPAY ==
--- NOTE | 2024-03-09 14:24 | US_ITS ---
HISTORY: pelvic pain. TECHNIQUE: Transabdominal and transvaginal pelvic ultrasound was performed with olivo scale , spectral Doppler, and color Doppler evaluation. 120 images. COMPARISON: CT 09/21/2023. FINDINGS: UTERUS: 5.8 x 2.7 x 4.2 cm. Anteverted. ENDOMETRIAL THICKNESS: 1-2 mm. RIGHT OVARY: 1.4 x 2 x 2.5 cm with small follicles. Vascular flow demonstrated. No adnexal masses. LEFT OVARY: 1.7 x 2.1 x 2.4 cm with small follicles. Vascular flow demonstrated. No adnexal masses. FREE FLUID: Trace. URINARY BLADDER: Well-distended at 388 cc. US/Pelvic w/ Transvaginal IMPRESSION: Unremarkable pelvic ultrasound. Electronically Signed: Leanne Hdz MD at 9:29 EST ,
== END | disposition home or self-care (01) ==
LOC: US 14:21
PROVIDERS: PCP Registered Nurse; Referring Provider Nurse Practitioner Family; Visit Provider Nurse Practitioner Family
DX: R10.2 Pelvic and perineal pain (principal)
CPT/HCPCS: 76830; 76856

== ENCOUNTER 2024-03-10 14:44 | Emergency (ER) | payer MEDICAID, SELFPAY ==
[2024-03-10 14:46] VITALS: BP 113/74; PULSE 112; RESP 18; TEMP 36.6; O2SAT 100; BMI 20.2
--- NOTE | 2024-03-10 15:08 | EKG12_ITS ---
Test Reason : Blood Pressure : */* mmHG Vent. Rate : 89 BPM Atrial Rate : 89 BPM P-R Int : 140 ms QRS Dur : 90 ms QT Int : 356 ms P-R-T Axes : 61 84 39 degrees QTcB Int : 433 ms Normal sinus rhythm RSR' or QR pattern in V1 suggests right ventricular conduction delay Borderline ECG Confirmed by Frank Hernandez ([id number]), society editor RAFAEL MILLER ([id number]) on 03/11/2024 1:41:46 PM Referred By: Confirmed By: Frank Hernandez
--- NOTE | 2024-03-10 15:12 | EDS_ITS ---
HPI <VIKTOR Pacheco - Last Filed: 03/10/24 17:40> History of Present Illness Chief Complaint: Chest Pain Narrative Narrative: Patient presenting today with pain below her left breast that occasionally radiates to the left side of her chest that started earlier today. She went to urgent care for evaluation, they performed a chest x-ray that was negative and encouraged her to come in to be evaluated. She reports that she has been sick with a nonproductive cough and nasal congestion over the last several days. She reports that her cold symptoms are improving. She denies shortness of breath. She is on the Depo shot and smokes about a pack of cigarettes per day, she denies history of blood clots or recent surgery/travel/immobilization. She denies fevers, chills, previous cardiac history. [facility] <VIKTOR Pacheco - Last Filed: 03/10/24 17:40> [facility] Medical History (Updated 03/10/24 @ 16:23 by VIKTOR Pacheco) Gastritis Anxiety and depression Home Medications ?Medication ?Instructions ?Recorded ?Last Taken ?Type medroxyprogesterone 150 mg/mL 150 mg IM [id number] #1 mL 09/22/23 Unknown Rx intramuscular syringe (Depo-Provera) cefdinir 300 mg capsule 600 mg (2 x 300 mg) PO DAILY #7 12/26/23 Unknown Rx caps doxycycline hyclate 100 mg capsule 100 mg PO BID 14 days #28 caps 03/02/24 Unknown Rx sertraline 150 mg capsule 150 mg PO QDAY 03/02/24 Unknown History Allergy/AdvReac Type Severity Reaction Status Date / Time azithromycin (From z pack) Allergy Intermediate Nausea Verified 03/10/24 14:46 latex Allergy Hives Verified 03/10/24 14:46 morphine Allergy Hives Verified 03/10/24 14:46 Penicillins Allergy Hives Verified 03/10/24 14:46 sulfamethoxazole (From AdvReac Mild STOMACH Verified 03/10/24 14:46 Bactrim) trimethoprim (From Bactrim) AdvReac Mild STOMACH Verified 03/10/24 14:46 Family History Grandmother Cancer lung Breast cancer Heart disease Grandfather Heart disease Surgical History S/P dilation and curettage Social History Smoking Status: Current every day smoker tobacco type: cigarettes alcohol intake: never substance use type: does not use caffeine: No what type of physical activity do you participate in: walking seatbelt use: sometimes do you feel safe at home: Yes additional social history: Anuj- Unemployed patient is unemployed ROS <VIKTOR Pacheco - Last Filed: 03/10/24 17:40> ROS ED Constitutional Constitutional ED: Denies chills or fever(s) ENT ENT ED: Reports nasal congestion Cardiovascular Cardiovascular: Reports chest pain; Denies palpitations Respiratory/Chest Respiratory/Chest: Reports cough; Denies dyspnea or wheezing Gastrointestinal Gastrointestinal: Denies abdominal pain, diarrhea or nausea Musculoskeletal Musculoskeletal: Denies arthralgias or myalgias Integumentary Denies rash EXAM <VIKTOR Pacheco - Last Filed: 03/10/24 17:40> Physical Exam Const Vital Signs: 03/10/24 14:45 03/10/24 14:46 03/10/24 15:45 Temperature 97.8 F Temperature Source Oral Pulse Rate 112 H 93 Respiratory Rate 18 16 Respiratory Effort Normal Non-Labored Blood Pressure 113/74 99/77 Blood Pressure Mean 87 84 Pulse Ox 100 100 Oxygen Delivery Method Room Air Room Air 03/10/24 16:00 03/10/24 16:18 Temperature 98.8 F Temperature Source Oral Pulse Rate 95 88 Respiratory Rate 16 15 Respiratory Effort Blood Pressure 96/68 96/68 Blood Pressure Mean 77 77 Pulse Ox 100 100 Oxygen Delivery Method Room Air Room Air Positive well nourished, well developed and no apparent distress General Appearance ED: well developed HEENT Reports normocephalic and head/scalp atraumatic Mouth ED: Yes moist mucous membranes normal Eyes PERRL and EOMs intact bilaterally Neck full ROM and supple Chest Wall inspection of chest normal Chest Narrative: Pain to palpation below the left breast and to the lower anterior ribs. Resp normal respiratory effort and clear to auscultation bilaterally Cardio regular rate and regular rhythm GI soft to palpation, non-tender, non-distended and no masses Back/Spine normal ROM and normal to inspection Extremity normal to inspection and full ROM Neuro oriented x3, CN's II-XII intact bilaterally, moves all extremities, no focal motor deficits and no sensory deficits noted Sensorium / Orientation: awake and alert Psych mental status grossly normal and thought process normal Skin no rashes or lesions noted and no wounds <Dr. Brendan Mackay DO - Last Filed: 03/10/24 23:36> Physical Exam Const Vital Signs: 03/10/24 14:45 03/10/24 14:46 03/10/24 15:45 Temperature 97.8 F Temperature Source Oral Pulse Rate 112 H 93 Respiratory Rate 18 16 Respiratory Effort Normal Non-Labored Blood Pressure 113/74 99/77 Blood Pressure Mean 87 84 Pulse Ox 100 100 Oxygen Delivery Method Room Air Room Air 03/10/24 16:00 03/10/24 16:18 Temperature 98.8 F Temperature Source Oral Pulse Rate 95 88 Respiratory Rate 16 15 Respiratory Effort Blood Pressure 96/68 96/68 Blood Pressure Mean 77 77 Pulse Ox 100 100 Oxygen Delivery Method Room Air Room Air <VIKTOR Pacheco - Last Filed: 03/10/24 17:40> Heart Score Score: 1 <Dr. Brendan Mackay, - Last Filed: 03/10/24 23:36> Heart Score History: Slightly/Non-Suspicious ECG: Normal Age: </= 45 years Risk Factors: 1 or 2 Risk Factors Troponin: </= Normal Limit Score: 1 MDM <VIKTOR Pacheco Last Filed: 03/10/24 17:40> MDM MDM Narrative Medical decision making narrative: Patient presenting today with pain below her left breast that is worse with deep breaths and coughing that started today, she has had a cough over the last several days. Had a chest x-ray in urgent care that was negative. She does not have any cardiac history. Given she is tachycardic, D-dimer will be obtained to rule out PE. Her CBC, BMP, troponin, and D-dimer are all unremarkable. EKG is normal sinus rhythm. On exam she does have reproducible tenderness to her chest, her exam is more consistent with a chest wall strain. Treat alternate Tylenol and ibuprofen as needed for her symptoms. Her cough is likely viral and is improving. She will be discharged home in stable condition. Interventions / MDM: Differential diagnosis: Upper respiratory infection, atypical chest pain Diagnosis considered but do not suspect: N/A My EKG interpretation: Sinus rate of 89, no ST or T wave changes Imaging independently reviewed and interpreted by myself: Reported negative from express care today. External documents reviewed: N/A Test considered but not ordered:N/A ED course: 3-day history of nonproductive cough today left-sided chest pain worse with deep breath. She is on Depo-Provera along with having tobacco history. No history of PE or DVT. Went to express care had a chest x-ray was negative. She was sent here due to her chest pain symptoms. No family history of MIs at young age. Denies hypertension, diabetes, hyperlipidemia. Had recent pelvic ultrasound due to abnormal cervix from her photographic artist. Denies history of gastric ulcers or kidney injury. Took ibuprofen at 10 AM. On exam symmetric breath sounds heart was regular, lungs are clear. Abdomen soft. Nontoxic. EKG ordered, with concerns for cardiac, cardiac workup. She was tachycardic on arrival low risk Wells criteria for PE therefore D-dimer obtained. Re-evaluation: stable Disposition discussed with patient/family/significant other: Case discussed with consulting clinician: N/A This note was generated with [employer] dictation software. It may contain incorrect words, spelling, and punctuation that were not noted in checking the note before signing. Lab Data Attestation: I reviewed the patient's lab results. Labs: Laboratory Results - last 24 hr 03/10/24 15:20 WBC 7.2 RBC 4.81 Hgb 14.1 Hct 42.6 MCV 88.6 MCH 29.3 MCHC 33.1 RDW Std Deviation 38.2 RDW Coeff of Rasta 11.8 Plt Count 244 MPV 9.5 Immature Gran % (Auto) 0.300 Neut % (Auto) 59.3 Lymph % (Auto) 26.0 [place] % (Auto) 10.8 H Eos % (Auto) 2.9 Baso % (Auto) 0.7 Absolute Neuts (auto) 4.3 Absolute Lymphs (auto) 1.86 Nucleated RBC % 0 D-Dimer Quant (PE/DVT) 0.27 Sodium 139 Potassium 3.6 Chloride 106 Carbon Dioxide 29.0 Anion Gap 4 L BUN 8 Creatinine 0.69 Estim Creat Clear Calc 93.43 Est GFR (MDRD) Af Amer 127 Est GFR (MDRD) Non-Af 105 BUN/Creatinine Ratio 11.6 Glucose 118 H Calcium 8.9 Troponin I High Sens < 3 L EKG Initial EKG: Comments: 89 bpm, normal sinus rhythm, no ST elevation, interpreted by attending ED physician <Dr. Brendan Mackay DO - Last Filed: 03/10/24 23:36> [facility] Narrative Medical decision making narrative: Patient presenting today with pain below her left breast that is worse with deep breaths and coughing that started today, she has had a cough over the last several days. Had a chest x-ray in urgent care that was negative. She does not have any cardiac history. Given she is tachycardic, D-dimer will be obtained to rule out PE. Her CBC, BMP, troponin, and D-dimer are all unremarkable. EKG is normal sinus rhythm. On exam she does have reproducible tenderness to her chest, her exam is more consistent with a chest wall strain. Treat alternate Tylenol and ibuprofen as needed for her symptoms. Her cough is likely viral and is improving. She will be discharged home in stable condition. Interventions / MDM: Differential diagnosis: Upper respiratory infection, atypical chest pain Diagnosis considered but do not suspect: N/A My EKG interpretation: Sinus rate of 89, no ST or T wave changes Imaging independently reviewed and interpreted by myself: Reported negative from [facility] today. External documents reviewed: N/A Test considered but not ordered:N/A ED course: 3-day history of nonproductive cough today left-sided chest pain worse with deep breath. She is on Depo-Provera along with having tobacco history. No history of PE or DVT. Went to [facility] had a chest x-ray was negative. She was sent here due to her chest pain symptoms. No family history of MIs at young age. Denies hypertension, diabetes, hyperlipidemia. Had recent pelvic ultrasound due to abnormal cervix from her photographic artist. Denies history of gastric ulcers or kidney injury. Took ibuprofen at 10 AM. On exam symmetric breath sounds heart was regular, lungs are clear. Abdomen soft. Nontoxic. EKG ordered, with concerns for cardiac, cardiac workup. She was tachycardic on arrival low risk Wells criteria for PE therefore D-dimer obtained. Troponin less than 3 D-dimer negative. She is reassured. Outpatient follow-up. Re-evaluation: stable Disposition discussed with patient/family/significant other: Patient Case discussed with consulting clinician: N/A This note was generated with [employer] software. It may contain incorrect words, spelling, and punctuation that were not noted in checking the note before signing. Lab Data Labs: Laboratory Results - last 24 hr 03/10/24 15:20 WBC 7.2 RBC 4.81 Hgb 14.1 Hct 42.6 MCV 88.6 MCH 29.3 MCHC 33.1 RDW Std Deviation 38.2 RDW Coeff of Rasta 11.8 Plt Count 244 MPV 9.5 Immature Gran % (Auto) 0.300 Neut % (Auto) 59.3 Lymph % (Auto) 26.0 [place] % (Auto) 10.8 H Eos % (Auto) 2.9 Baso % (Auto) 0.7 Absolute Neuts (auto) 4.3 Absolute Lymphs (auto) 1.86 Nucleated RBC % 0 D-Dimer Quant (PE/DVT) 0.27 Sodium 139 Potassium 3.6 Chloride 106 Carbon Dioxide 29.0 Anion Gap 4 L BUN 8 Creatinine 0.69 Estim Creat Clear Calc 93.43 Est GFR (MDRD) Af Amer 127 Est GFR (MDRD) Non-Af 105 BUN/Creatinine Ratio 11.6 Glucose 118 H Calcium 8.9 Troponin I High Sens < 3 L Discharge Plan Triage Chief Complaint: Chest Pain ED Midlevel Provider: Neena Lawson ED Provider: Brendan Mackay Dx/Rx/DC Orders Clinical Impression: Chest wall pain Instructions: ED Chest Wall Strain Prescriptions: No Action medroxyprogesterone [Depo-Provera] 150 mg/mL syringe 150 mg IM [id number] Qty: 1 1RF sertraline 150 mg capsule 150 mg PO QDAY doxycycline hyclate 100 mg capsule 100 mg PO BID 14 Days Qty: 28 0RF cefdinir 300 mg capsule 600 mg PO DAILY Qty: 7 0RF Primary Care Provider: Cathleen Dumont NP Referrals: Cathleen Dumont NP, [facility] [employer] [facility] [Primary Care Provider] - 5-7 Days Activity Restrictions/Additional Instructions: Follow-up with your PCP and return for any other concerns. Print Language: Telugu Disposition Disposition: Home, Self Care Discharge Date/Time: 03/10/24 16:30
[2024-03-10 15:27] LABS: Absolute Lymphocyte Count 1.86 X10^3/uL (0.83-4.51); Absolute Neutrophil Count 4.3 X10^3/uL (2.0-7.7); Basophil# 0.05 X10^3/uL; Basophil% 0.7 % (0-1); Eosinophil# 0.21 X10^3/uL; Eosinophils% 2.9 % (0-5); Hematocrit 42.6 % (37-47); Hemoglobin 14.1 g/dL (12.0-15.0); Lymphocyte # 1.86 X10^3/ul (0.83-4.51); Mean Corp Hgb Conc 33.1 g/dL (32-36); Mean Corpuscular Hgb 29.3 pg (27.0-32.0); Mean Corpuscular Volume 88.6 fL (81-99); Mean Platelet Vol. 9.5 fl (6.2-12.0); Monocyte# 0.77 X10^3/uL; Monocyte% 10.8 % (0-10); NRBC Flagged by Analyzer 0 % (0-5); Neutrophil # 4.25 X10^3/uL (2.7-7.7); Neutrophil % 59.3 % (47-70); Platelet Count 244 K/mm3 (150-450); RBC Distribution Width CV 11.8 % (11.6-14.6); RBC Distribution Width SD 38.2 fl (35.1-43.9); Red Blood Count 4.81 M/mm3 (4.2-5.4); White Blood Count 7.2 K/mm3 (4.4-11.0)
[2024-03-10 15:44] LABS: Anion Gap 4 (5-15); BUN 8 mg/dL (7-18); BUN/Creat Ratio 11.6 RATIO (10-20); Calcium,Total 8.9 mg/dL (8.5-10.1); Chloride 106 mmol/L (98-107); Creatinine, Serum 0.69 mg/dL (0.55-1.02); EST Glomerular Filtration Rate 105 mL/min (>60); Est Glom Filt Rate - Afr Amer 127 mL/min (>60); Estimated Creatinine Clearance 93.43 ml/min; Glucose 118 mg/dL (74-106); Potassium 3.6 mmol/L (3.5-5.1); Sodium Level 139 mmol/L (136-145); Troponin-I HS < 3 pg/mL (3.0-54.0)
[2024-03-10 15:45] VITALS: BP 99/77; PULSE 93; RESP 16; O2SAT 100
[2024-03-10 16:00] VITALS: BP 96/68; PULSE 95; RESP 16; O2SAT 100
[2024-03-10 16:15] LABS: D-Dimer Quantitative (DVT/PE) 0.27 FEU/ug/m (0.27-0.49)
[2024-03-10 16:18] VITALS: BP 96/68; PULSE 88; RESP 15; TEMP 37.1; O2SAT 100
== END 2024-03-10 16:30 | disposition home or self-care (01) ==
PROVIDERS: Physician Assistant; Emergency Provider Emergency Medicine; PCP Registered Nurse; Visit Provider Emergency Medicine
DX: R07.89 Other chest pain (principal); F17.210 Nicotine dependence, cigarettes, uncomplicated; N64.4 Mastodynia
CPT/HCPCS: 80048; 84484; 85025; 85379; 93005; 99284

== ENCOUNTER 2025-02-22 06:55 | Emergency (ER) | payer SELFPAY ==
[2025-02-22 06:56] VITALS: BP 120/74; PULSE 99; RESP 16; TEMP 36.6; O2SAT 100; BMI 17.9
--- NOTE | 2025-02-22 07:28 | RAD_ITS ---
PROCEDURE: CHEST PA AND LATERAL 02/22/2025 REASON FOR EXAM: CHEST PAIN TECHNIQUE: Procedure Code: RADCXR Modality: DX Procedure: CHEST PA AND LATERAL COMPARISON: Chest x-ray of 10/30/2023. RAD/Chest PA and Lateral IMPRESSION: Lungs appear clear of acute disease. No pleural effusion or pneumothorax is noted. The cardiomediastinal silhouette is stable, without evidence of cardiomegaly. No acute osseous process is seen. Negative examination. Reading Location: [place] [id number]
--- NOTE | 2025-02-22 07:36 | EX.ED.DYSGE1 ---
HPI History of Present Illness Chief Complaint: General Illness Informant: patient Narrative Narrative: Patient is a 34-year-old female with no significant PMHx presenting with chest pressure, throat pressure, and a burning sensation throughout her body. - Symptoms began last night, waking her 4-5 times from sleep. - Reports a sensation of her body on fire without apparent cause, along with chest and throat pressure. - Describes a brain fog making it difficult to think clearly. - Feels off and like something just wasn't right. - Reports a cough and significant nasal congestion with post-nasal drainage. - Initially had a dry cough, but after taking Claritin this morning, the cough became productive, causing chest pain and a burning sensation. - Denies taking Claritin-D; took regular Claritin gel capsules. - Denies taking any other medications or prescriptions. - Experiences nausea during episodes of anxiety, but denies emesis or diarrhea. - Reports occasional blurry vision during these episodes. - Aware of bacterial pneumonia and bronchitis cases at work. [facility] Medical History (Updated 02/22/25 @ 08:[address] Judd Patel MD) Gastritis Anxiety and depression Home Medications ?Medication ?Instructions ?Recorded ?Last Taken ?Type NK 06/08/24 Unknown History Allergy/AdvReac Type Severity Reaction Status Date / Time azithromycin (From z pack) Allergy Intermediate Nausea Verified 02/22/25 06:56 latex Allergy Hives Verified 02/22/25 06:56 morphine Allergy Hives Verified 02/22/25 06:56 Penicillins Allergy Hives Verified 02/22/25 06:56 sulfamethoxazole (From AdvReac Mild STOMACH Verified 02/22/25 06:56 Bactrim) trimethoprim (From Bactrim) AdvReac Mild STOMACH Verified 02/22/25 06:56 Family History Grandmother Cancer lung Breast cancer Heart disease Grandfather Heart disease Surgical History S/P dilation and curettage Social History Smoking Status: Current every day smoker tobacco type: cigarettes and e-cigarettes alcohol intake: never substance use type: does not use caffeine: No what type of physical activity do you participate in: walking seatbelt use: sometimes do you feel safe at home: Yes additional social history: Anuj- Unemployed patient is unemployed ROS ROS ED Constitutional Constitutional ED: Reports other Details: Feels like hot flashing ; Denies chills or fever(s) Eyes Eyes: Reports blurry vision bilateral; Denies change in vision or diplopia ENT ENT ED: Reports nasal congestion and rhinorrhea; Denies ear pain, headache(s) or sore throat Cardiovascular Cardiovascular: Reports chest pain; Denies palpitations Respiratory/Chest Respiratory/Chest: Reports cough; Denies dyspnea or sputum Gastrointestinal Gastrointestinal: Reports nausea; Denies abdominal pain, diarrhea or vomiting Genitourinary Genitourinary ED: Denies dysuria or hematuria Musculoskeletal Musculoskeletal: Denies back pain or neck pain Integumentary Denies abscess or rash Neurologic Neurologic: Denies headache(s), paresthesias or weakness Psychiatric Psychiatric: Reports anxiety; Denies suicidal thoughts EXAM Physical Exam Const Vital Signs: 02/22/25 06:56 02/22/25 06:56 Temperature 97.9 F Temperature Source Oral Pulse Rate 99 Respiratory Rate 16 Respiratory Effort Normal Respiratory Pattern Normal Blood Pressure 120/74 Blood Pressure Mean 89 Pulse Ox 100 Oxygen Delivery Method Room Air Positive well nourished and well developed General Appearance ED: well developed and NAD HEENT Reports moist mucous membranes HEENT Narrative: No sinus tenderness. TMs normal bilaterally. Oral mucosa normal. Throat normal. normocephalic and atraumatic Eyes PERRL and EOMs intact bilaterally Neck full ROM, no lymphadenopathy and supple Resp normal respiratory effort and clear to auscultation bilaterally Cardio regular rate, regular rhythm and no murmurs Rate: Negative for tachycardic GI non-tender and non-distended Auscultation: normoactive bowel sounds Palpation: soft Back/Spine no CVA tenderness General Back: other FROM Extremity normal to inspection General Extremety ED: Negative for edema, pulses abnormal or tenderness General Extremity: Negative for edema or pulses abnormal Neuro oriented x3, CN's II-XII intact bilaterally and no sensory deficits noted Sensorium / Orientation: awake and alert Motor Exam: strength 5/5 throughout Psych Mood & Affect: anxious and tearful Skin no rashes or lesions noted and no wounds MDM MDM MDM Narrative Medical decision making narrative: Assessment: The patient is a 34-year-old female presenting for episodic diffuse burning sensation, chest and throat pressure, cough, and nasal congestion. She also reports anxiety with associated ?brain fog? and intermittent blurry vision. Physical exam is unremarkable with clear lungs and normal oropharynx. Labs are normal, chest x-ray shows no pneumonia, and EKG is normal, effectively ruling out infectious or cardiac pathology. Symptoms are most consistent with anxiety exacerbation possibly triggered by upper-respiratory drainage/infection that is likely viral or allergic. Plan: - Performed focused physical exam and provided reassurance regarding normal test results - Provided workplace excuse note per patient request - Discharged home in stable condition with return instructions as discussed Diagnostics: - Labs: all results within normal limits. No leukocytosis or leftward shift to suggest bacterial infection. - Chest x-ray ? normal; no pneumonia, 2 views on my interpretation - EKG interpreted: normal tracing, no abnormalities. Independently interpreted by me, Judd Patel Reevaluations: - Discussed normal test results with patient; burning sensation now intermittent/improved; patient declines offer for in-ED Vistaril and prefers to go home to rest Lab Data Attestation: I reviewed the patient's lab results. Labs: Laboratory Results - last 24 hr 02/22/25 07:40 WBC 5.5 RBC 4.24 Hgb 12.9 Hct 38.1 MCV 89.9 MCH 30.4 MCHC 33.9 RDW Std Deviation 39.8 RDW Coeff of Rasta 12.1 Plt Count 223 MPV 10.2 Immature Gran % (Auto) 0.200 Neut % (Auto) 44.2 L Lymph % (Auto) 35.0 [place] % (Auto) 12.3 H Eos % (Auto) 7.7 H Baso % (Auto) 0.6 Absolute Neuts (auto) 2.4 Absolute Lymphs (auto) 1.91 Nucleated RBC % 0 Sodium 136 Potassium 4.0 Chloride 103 Carbon Dioxide 26.3 Anion Gap 7 BUN 8 Creatinine 0.73 Estim Creat Clear Calc 77.90 Est GFR (MDRD) Non-Af 113 BUN/Creatinine Ratio 11.3 Glucose 102 H Calcium 9.0 Radiography Diagnostic Testing: Clinical Impression(s) from Imaging Studies Chest X-Ray 02/22/25 07:28 IMPRESSION: Lungs appear clear of acute disease. No pleural effusion or pneumothorax is noted. The cardiomediastinal silhouette is stable, without evidence of cardiomegaly. No acute osseous process is seen. Negative examination. Reading Location: [place] [id number] Rhythm Strip Rhythm Strip: Sinus Rhythm Rate: 74 Ectopy: None EKG Initial EKG: Attestation: I personally reviewed and interpreted this EKG as follows: Interpretation: Sinus Rhythm and No Acute Injury Pattern Comments: Nml axis & intervals; nml EKG Discharge Plan Triage Chief Complaint: General Illness ED Provider: Judd Patel Dx/Rx/DC Orders Clinical Impression: Viral URI with cough, Burning chest pain, Acute anxiety Instructions: ED URI, Viral, No Abx (Adult) Prescriptions: No Action NK Stand Alone Forms: ED Work / School Excuse Primary Care Provider: Cathleen Dumont NP Referrals: Cathleen Dumont NP, RN [facility]-C [Primary Care Provider, Medical] - 1 Week if not improving Print Language: Korean Disposition Disposition: Home, Self Care
[2025-02-22 07:47] LABS: Hematocrit 38.1 % (37-47); Hemoglobin 12.9 g/dL (12.0-15.0); Immature Granulocytes Count 0.010 X10^3/uL (0.0-0.0); Mean Corp Hgb Conc 33.9 g/dL (32-36); Mean Corpuscular Volume 89.9 fL (81-99); Mean Platelet Vol. 10.2 fl (6.2-12.0); NRBC Flagged by Analyzer 0 % (0-5); Platelet Count 223 K/mm3 (150-450); RBC Distribution Width CV 12.1 % (11.6-14.6); RBC Distribution Width SD 39.8 fl (35.1-43.9); Red Blood Count 4.24 M/mm3 (4.2-5.4); White Blood Count 5.5 K/mm3 (4.4-11.0)
[2025-02-22 08:09] LABS: Anion Gap 7 (5-15); BUN 8 mg/dL (4-19); BUN/Creat Ratio 11.3 RATIO (10-20); Calcium,Total 9.0 mg/dL (7.6-11.0); Carbon Dioxide 26.3 mmol/L (21.0-32.0); Chloride 103 mmol/L (98-108); Estimated Creatinine Clearance 77.90 ml/min (50-250); Glucose 102 mg/dL (70-99); Potassium 4.0 mmol/L (3.3-5.1)
[2025-02-22 08:36] VITALS: BP 103/70; PULSE 72; RESP 18; TEMP 36.6; O2SAT 98
== END 2025-02-22 08:40 | disposition home or self-care (01) ==
PROVIDERS: Emergency Provider Emergency Medicine; PCP Registered Nurse; Visit Provider Emergency Medicine
DX: J06.9 Acute upper respiratory infection, unspecified (principal); F41.9 Anxiety disorder, unspecified; R07.89 Other chest pain; F17.210 Nicotine dependence, cigarettes, uncomplicated; F17.290 Nicotine dependence, other tobacco product, uncomplicated
CPT/HCPCS: 36415; 71046; 80048; 85025; 93005; 99282